=== PATIENT | female | born 1960 | race Caucasian/White ===

== ENCOUNTER → 2017-04-13 | Day surgery (SDC) | payer MEDICARE, OTHER ==
[~2017-04-13] MED LIST: BUPIVACAINE HCL PF 0.5% 10 ML VIAL ONE; GABA600T PO; HYDR-3583 PO; LACTATED RINGER'S 1000 ML INJ 1,000 ML ONE; LEVA750T PO; LIDOCAINE HCL 2% 50 ML VIAL ONE; LYRI100C PO; METF1000 PO; MIDAZOLAM HCL 2 MG/2 ML VIAL ONE; ONDANSETRON HCL 4 MG/2 ML VIAL IV PUSH ONE; PROPOFOL 200 MG/20 ML AMP IV ONE; PROT40TA PO; TRAZ100T4 PO; ceFAZolin 2 GM PREMIX 50 ML ONE
--- NOTE | 2017-04-15 14:42 | TN ---
cc: RUPAL MCCRAY DPM DATE OF SURGERY: 04/13/2017. PREOPERATIVE DIAGNOSIS: Osteomyelitis right third toe. POSTOPERATIVE DIAGNOSIS: Osteomyelitis right third toe. OPERATIVE PROCEDURE PERFORMED: Amputation right third toe. SURGEON: Rupal Mccray DPM. COOKING CHEF: Staff. PATHOLOGY: 1. Distal right third toe. 2. Bone biopsy right third toe proximal phalanx. 3. Culture right foot. ANESTHESIA: General endotracheal anesthesia plus 5 mL of 0.5% Marcaine plain plus 5 mL 2% lidocaine plain. ESTIMATED BLOOD LOSS: Minimal. COMPLICATIONS: None. TOURNIQUET TIME: 15 minutes right ankle at 250 mmHg. CONDITION: Stable to post-anesthesia care unit. DISPOSITION: Weightbearing as tolerated to heel only in surgical shoe right foot. FOLLOW UP: Follow up in clinic in one week for dressing change. INDICATIONS FOR THE PROCEDURE: The patient is a 56-year-old female who presented to my clinic with a chronic draining open wound to the tip of the right third toe. She had an MRI performed that showed findings consistent with osteomyelitis to the distal aspect of the right third toe. I discussed with her that her toe is very rigidly contracted and in order to remove all the infected bone and tissue would require to at least go back to the proximal interphalangeal joint which would leave a small portion of her toe sticking straight up in the air. I advised against leaving that due to her history of infection and problems that it would likely lead to further issues between the toes and she consented to amputation right third toe. DESCRIPTION OF THE PROCEDURE IN DETAIL: She was seen in preop holding by myself, nursing staff and anesthesia where the correct patient side and site were all confirmed be correct in the right foot. She was then taken back to the surgical suite, placed in supine position where attention was directed the right foot. It was prepped and draped in normal sterile fashion after timeouts were performed per facility protocol. Attention was directed to the right third toe where two semi elliptical incisions were made medially and laterally encompassing the right third digit where it was disarticulated at the metatarsophalangeal joint. The distal aspect of the right third toe was sent to pathology including the distal and middle phalanges and the proximal phalanx was sent as a bone biopsy to confirm that all infected bone was removed. A culture was also taken of the surgical wound prior to closure and sent to micro to determine if further antibiotics were required. Following this, the area was copiously irrigated followed by a local anesthetic consisting of 5 mL of 0.5% Marcaine plain with 5 mL of 2% lidocaine plain into the area followed by closure with 2-0 nylon suture primarily. A dressing consisting of Xeroform, 4x4s, ABD pads, Juventino and Geoffrey bandage were applied to the right lower extremity. She tolerated procedure and anesthesia well without complications and was taken back to post-anesthesia care unit with vital signs stable and vascular status intact to the remainder of the right foot. She will be weightbearing as tolerated to the heel only on the right foot in a surgical shoe will follow up in clinic in one week for dressing change. Rupal DAY/VALERIO /2:20 PM /2:39 PM
== END | disposition home or self-care (01) ==
LOC: ESDC 06:04
PROVIDERS: ATTEND Podiatrist Foot & Ankle Surgery
DX: M86.671 Other chronic osteomyelitis, right ankle and foot (principal)
CPT/HCPCS: 01480; 28820; 87070; 87205; 88305; 88311; J0690; J2250; J2405; J3010; J7120; 88307

== ENCOUNTER 2017-04-27 12:54 | Inpatient (IN) | payer MEDICARE, OTHER ==
[~2017-04-27] VITALS: Ht 165.1 cm; Wt 90.0 kg
[~2017-04-27 12:54] MED LIST changes: -BUPIVACAINE HCL PF 0.5% 10 ML VIAL ONE; -LACTATED RINGER'S 1000 ML INJ 1,000 ML ONE; -LIDOCAINE HCL 2% 50 ML VIAL ONE; -MIDAZOLAM HCL 2 MG/2 ML VIAL ONE; -ONDANSETRON HCL 4 MG/2 ML VIAL IV PUSH ONE; -PROPOFOL 200 MG/20 ML AMP IV ONE; -ceFAZolin 2 GM PREMIX 50 ML ONE
[2017-04-27 13:02] VITALS: BP 128/84; PULSE 98; RESP 20; TEMP 97.7; O2SAT 97
--- NOTE | 2017-04-27 13:58 | PD ---
Physical Exam Time Seen by Provider: 13:55 Narrative 56yo F sent by Dr. Lofton for admission for IV Antibiotics for R foot cellulitis s/p R #3 amputation 04/13/2017. Denies fever, vomiting. Patient seen in triage. VS reviewed. Patient awaiting bed placement. Data Data Last Documented VS Vital Signs Date Time Temp Pulse Resp B/P Pulse Ox O2 Delivery O2 Flow Rate FiO2 04/27/17 13:02 97.7 98 20 128/84 97 Room Air MDM Supervised Visit with JIMBO: Buffy Carson Apr 27, 2017 13:58
[2017-04-27] MEDS ORDERED: ACTO30TA10 PO (16:12)
[2017-04-27] MEDS ORDERED: GEMF600T PO (16:12)
[2017-04-27] MEDS ORDERED: DAPA1TAB3 PO (16:12)
--- NOTE | 2017-04-27 16:13 | PD ---
HPI Chief Complaint: Skin Problem Time Seen by Provider: 16:13 Travel History International Travel<30 days: No Contact w/Intl Traveler<30days: No Traveled to known affect area: No PFSH Past Medical History Arthritis: No Asthma: No Autoimmune Disease: No Blood Disorders: No Heart Rhythm Problems: No Cancer: No Cardiovascular Problems: No High Cholesterol: Yes Chemotherapy: No Chest Pain: No Congestive Heart Failure: No COPD: No Cerebrovascular Accident: No Diabetes: Yes (TYPE 2 ) Diminished Hearing: No Endocrine: Yes GERD: Yes Genitourinary: No Hiatal Hernia: No Immune Disorder: No Kidney Stones: No Musculoskeletal: Yes (DIABETIC NEUROPATHY) Neurologic: No Psychiatric: No Reproductive: No Respiratory: Yes Migraines: No Radiation Therapy: No Renal Failure: No Seizures: No Sickle Cell Disease: No Sleep Apnea: No Thyroid Disease: No Ulcer: No : 2 Para: 2 Miscarriage: 0 : 0 Past Surgical History Abdominal Surgery: No AICD: No Arteriovenous Shunt: No Cardiac Surgery: No Ear Surgery: No Endocrine Surgery: No Eye Surgery: No Genitourinary Surgery: No Gynecologic Surgery: No Insulin Pump: No Joint Replacement: No Neurologic Surgery: Yes Oral Surgery: Yes (Dentures) Pacemaker: No Thoracic Surgery: No Other Surgery: Yes (CALEB FEET) Social History Alcohol Use: No Tobacco Use: No Substance Use: No Allergies-Medications (Allergen,Severity, Reaction): Coded Allergies: Zosyn (Verified Allergy, Severe, Flushing, 04/27/17) BLURRED VISION, CHEST TIGHTNESS, SHORTNESS OF BREATH Vancomycin (Verified Adverse Reaction, Intermediate, ? 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 Farxiga (Dapagliflozin) 10 Mg Tab 10 Mg PO DAILY Actos (Pioglitazone HCl) 30 Mg Tab 30 Mg PO DAILY Metformin (Metformin HCl) 1,000 Mg Tab 1,000 Mg PO BIDPC With meals Protonix (Pantoprazole Sodium) 40 Mg Tab 40 Mg PO DAILY Gabapentin 600 Mg Tab 600 Mg PO HS Data Data Last Documented VS Vital Signs Date Time Temp Pulse Resp B/P Pulse Ox O2 Delivery O2 Flow Rate FiO2 04/27/17 13:02 97.7 98 20 128/84 97 Room Air Orders Iv Access Insert/Monitor (04/27/17 16:07) Complete Blood Count With Diff (04/27/17 16:07) Comprehensive Metabolic Panel (04/27/17 16:07) Westergren Sedimentation Rate (04/27/17 16:07) C-Reactive Protein (Crp) (04/27/17 16:07) Prothrombin Time / Inr (Pt) (04/27/17 16:07) Act Partial Throm Time (Ptt) (04/27/17 16:07) Blood Culture (04/27/17 16:07) Mri Foot W&W/O Contrast (04/27/17 ) Anuradha Branham Apr 27, 2017 16:13
--- NOTE | 2017-04-27 16:15 | PD ---
HPI Chief Complaint: Skin Problem Time Seen by Provider: 16:14 Travel History International Travel<30 days: No Contact w/Intl Traveler<30days: No Traveled to known affect area: No History of Present Illness HPI 56-year-old female presents to the emergency department sent by Dr. Godinez on, manufacture specialist, for IV antibiotics, MRI. The patient had right third digit toe amputation on April 13, 2017. She has been on Bactrim for approximately a week. Apparently, she is having worsening redness to the area and Dr. Faith is concerned of underlying abscess. The patient brings a prescription that says to admit to hospitalist for IV antibiotics, MRI with and without contrast, consult podiatry. Patient states she is allergic to Zosyn and vancomycin. PFSH Past Medical History Arthritis: No Asthma: No Autoimmune Disease: No Blood Disorders: No Heart Rhythm Problems: No Cancer: No Cardiovascular Problems: No High Cholesterol: Yes Chemotherapy: No Chest Pain: No Congestive Heart Failure: No COPD: No Cerebrovascular Accident: No Diabetes: Yes (TYPE 2 ) Diminished Hearing: No Endocrine: Yes GERD: Yes Genitourinary: No Hiatal Hernia: No Immune Disorder: No Kidney Stones: No Musculoskeletal: Yes (DIABETIC NEUROPATHY) Neurologic: No Psychiatric: No Reproductive: No Respiratory: Yes Migraines: No Radiation Therapy: No Renal Failure: No Seizures: No Sickle Cell Disease: No Sleep Apnea: No Thyroid Disease: No Ulcer: No : 2 Para: 2 Miscarriage: 0 : 0 Past Surgical History Abdominal Surgery: No AICD: No Arteriovenous Shunt: No Cardiac Surgery: No Ear Surgery: No Endocrine Surgery: No Eye Surgery: No Genitourinary Surgery: No Gynecologic Surgery: No Insulin Pump: No Joint Replacement: No Neurologic Surgery: Yes Oral Surgery: Yes (Dentures) Pacemaker: No Thoracic Surgery: No Other Surgery: Yes (CALEB FEET) Social History Alcohol Use: No Tobacco Use: No Substance Use: No Allergies-Medications (Allergen,Severity, Reaction): Coded Allergies: Zosyn (Verified Allergy, Severe, Flushing, 04/27/17) BLURRED VISION, CHEST TIGHTNESS, SHORTNESS OF BREATH Vancomycin (Verified Adverse Reaction, Intermediate, ? 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 Farxiga (Dapagliflozin) 10 Mg Tab 10 Mg PO DAILY Actos (Pioglitazone HCl) 30 Mg Tab 30 Mg PO DAILY Metformin (Metformin HCl) 1,000 Mg Tab 1,000 Mg PO BIDPC With meals Protonix (Pantoprazole Sodium) 40 Mg Tab 40 Mg PO DAILY Gabapentin 600 Mg Tab 600 Mg PO HS Review of Systems Except as stated in HPI: all other systems reviewed are Neg Physical Exam Narrative GENERAL: Well-nourished, well-developed female patient, ambulatory and afebrile. SKIN: Focused skin assessment warm/dry. HEAD: Normocephalic. Atraumatic. EYES: No scleral icterus. No injection or drainage. NECK: Supple, trachea midline. No JVD or lymphadenopathy. CARDIOVASCULAR: Regular rate and rhythm without murmurs, gallops, or rubs. RESPIRATORY: Breath sounds equal bilaterally. No accessory muscle use. GASTROINTESTINAL: Abdomen soft, non-tender, nondistended. MUSCULOSKELETAL: No cyanosis, or edema. Patient is s/p amputation to the right 3rd toe with erythema and swelling noted BACK: Nontender without obvious deformity. No CVA tenderness. Data Data Last Documented VS Vital Signs Date Time Temp Pulse Resp B/P Pulse Ox O2 Delivery O2 Flow Rate FiO2 04/27/17 13:02 97.7 98 20 128/84 97 Room Air Orders Iv Access Insert/Monitor (04/27/17 16:07) Complete Blood Count With Diff (04/27/17 16:07) Comprehensive Metabolic Panel (04/27/17 16:07) Westergren Sedimentation Rate (04/27/17 16:07) C-Reactive Protein (Crp) (04/27/17 16:07) Prothrombin Time / Inr (Pt) (04/27/17 16:07) Act Partial Throm Time (Ptt) (04/27/17 16:07) Blood Culture (04/27/17 16:07) Mri Foot W&W/O Contrast (04/27/17 ) Wbc Spect Ceretec (04/27/17 ) Consult Infectious Disease (04/27/17 ) Daptomycin Inj (Cubicin Inj) (04/27/17 16:45) Levofloxacin 750 Mg Premix Inj (Levaquin (04/27/17 16:45) Wound Culture And Gram Stain (04/27/17 16:47) (Hub Use Only)Inp Phy Cons/Ref (04/27/17 ) Consult Podiatry (04/27/17 ) Admit Order (Ed Use Only) (04/27/17 17:56) Labs Laboratory Tests Test 04/27/17 16:30 White Blood Count 15.6 TH/MM3 Red Blood Count 4.48 MIL/MM3 Hemoglobin 10.6 GM/DL Hematocrit 33.4 % Mean Corpuscular Volume 74.7 FL Mean Corpuscular Hemoglobin 23.6 PG Mean Corpuscular Hemoglobin 31.6 % Concent Red Cell Distribution Width 17.5 % Platelet Count 341 TH/MM3 Mean Platelet Volume 9.0 FL Neutrophils (%) (Auto) 71.8 % Lymphocytes (%) (Auto) 22.2 % Monocytes (%) (Auto) 3.7 % Eosinophils (%) (Auto) 1.6 % Basophils (%) (Auto) 0.7 % Neutrophils # (Auto) 11.2 TH/MM3 Lymphocytes # (Auto) 3.4 TH/MM3 Monocytes # (Auto) 0.6 TH/MM3 Eosinophils # (Auto) 0.3 TH/MM3 Basophils # (Auto) 0.1 TH/MM3 CBC Comment DIFF FINAL Differential Comment Erythrocyte Sedimentation Rate 49 mm/hr Prothrombin Time 10.9 SEC Prothromb Time International 1.0 RATIO Ratio Activated Partial 30.1 SEC Thromboplast Time Sodium Level 135 MEQ/L Potassium Level 4.1 MEQ/L Chloride Level 100 MEQ/L Carbon Dioxide Level 22.7 MEQ/L Anion Gap 12 MEQ/L Blood Urea Nitrogen 23 MG/DL Creatinine 0.84 MG/DL Estimat Glomerular Filtration 70 ML/MIN Rate Random Glucose 163 MG/DL Calcium Level 9.6 MG/DL Total Bilirubin 0.2 MG/DL Aspartate Amino Transf 9 U/L (AST/SGOT) Alanine Aminotransferase 15 U/L (ALT/SGPT) Alkaline Phosphatase 92 U/L C-Reactive Protein 1.50 MG/DL Total Protein 8.0 GM/DL Albumin 3.3 GM/DL MDM Medical Decision Making Medical Screen Exam Complete: Yes Emergency Medical Condition: Yes Medical Record Reviewed: Yes Differential Diagnosis osteomyelitis vs abscess vs.cellulitis Narrative Course 56-year-old female sent by Dr. Lofton for admission for IV antibiotics. CBC, CMP, sedimentation rate, CRP, PTT, PTT/INR, blood cultures 2, MRI with and without contrast are ordered and pending. Blood culture is ordered. Call is placed to Dr. Lofton to see what antibiotic she would like the patient to be on. CBC shows leukocytosis of 15.6. CMP shows no acute abnormalities. ESR is 49. CRP is 1.50. Coags are unremarkable. I talked to Dr. Dominguez, on-call for Dr. Godinez run at 1625. The patient was on Levaquin and daptomycin at her last visit. He would like her to restart of these medications due to allergy to Zosyn and vancomycin. He would like a speck CT for WBC for osteomyelitis to be completed. He would like infectious disease to be consulted as well. Test is ordered. I discussed this with the [employer] and states this will be done tomorrow morning. Patient started on Levaquin 750 mg and daptomycin 600 mg IV. Consult is placed for infectious disease and podiatry. [facility] is paged for admission. Dr. Frank accepted admission. Diagnosis Primary Impression: Cellulitis of foot, right Additional Impression: Diabetes Qualified Code: E11.8 - Type 2 diabetes mellitus with complication, unspecified intermediate insulin use status Admitting Information Admitting Physician Requests: Admit Anuradha Branham Apr 27, 2017 16:15
[2017-04-27] MEDS ORDERED: DAPTOmycin INJ 600 MG in SODIUM CHLORIDE 0.9% INJ 100 ML IV ONE (16:45)
[2017-04-27] MEDS ORDERED: LEVOFLOXACIN 750 MG PREMIX INJ 150 ML IV ONE (16:45)
[2017-04-27 17:14] LABS: AUTOMATED NEUTROPHIL # 11.2 TH/MM3 (1.8-7.7); BASOPHIL # 0.1 TH/MM3 (0-0.2); BASOPHIL % 0.7 % (0.0-2.0); EOSINOPHIL # 0.3 TH/MM3 (0-0.4); EOSINOPHIL % 1.6 % (0.0-4.0); HEMATOCRIT 33.4 % (35.0-46.0); HEMO FLAGS DIFF FINAL; LYMPH % 22.2 % (9.0-44.0); LYMPHOCYTE # 3.4 TH/MM3 (1.0-4.8); MEAN CELL VOLUME 74.7 FL (80.0-100.0); MEAN CORPUSCULAR HEMOGLOBIN 23.6 PG (27.0-34.0); MEAN CORPUSCULAR HGB CONC 31.6 % (32.0-36.0); MONO % 3.7 % (0.0-8.0); NEUT % 71.8 % (16.0-70.0); PLATELET COUNT 341 TH/MM3 (150-450); RED BLOOD COUNT 4.48 MIL/MM3 (4.00-5.30); RED CELL DISTRIBUTION WIDTH 17.5 % (11.6-17.2); WHITE BLOOD COUNT 15.6 TH/MM3 (4.0-11.0)
[2017-04-27 17:22] LABS: APTT (PATIENT) 30.1 SEC (24.3-30.1); PROTHROMBIN TIME - PATIENT 10.9 SEC (9.8-11.6)
[2017-04-27 17:41] LABS: ANION GAP 12 MEQ/L (5-15); AST (GOT) 9 U/L (15-37); BICARBONATE 22.7 MEQ/L (21.0-32.0); BLOOD UREA NITROGEN 23 MG/DL (7-18); CHLORIDE 100 MEQ/L (98-107); GLOMERULAR FILTRATION RATE 70 ML/MIN (>89); POTASSIUM 4.1 MEQ/L (3.5-5.1); SODIUM (NA) 135 MEQ/L (136-145)
[2017-04-27 17:42] LABS: ALT (GPT) 15 U/L (10-53)
[2017-04-27 17:45] LABS: ALKALINE PHOSPHATASE 92 U/L (45-117); TOTAL BILIRUBIN ADULT 0.2 MG/DL (0.2-1.0)
[2017-04-27] MEDS ORDERED: DEXTROSE 50% IN WATER 50 ML VIAL(D50) IV PRN (18:00)
[2017-04-27] MEDS ORDERED: ACETAMINOPHEN 325 MG TAB PO PRN (18:00)
[2017-04-27] MEDS ORDERED: GLUCAGON 1 MG/ML VIAL OTHER PRN ×2 (18:00→18:45)
[2017-04-27] MEDS ORDERED: DEXTROSE 50% IN WATER 50 ML VIAL(D50) IV PUSH PRN (18:45)
[2017-04-27 19:13] VITALS: BP 126/79; PULSE 89; RESP 16; TEMP 98.5; O2SAT 97
[2017-04-27] MEDS: INSULIN ASPART SUPPLEMENTAL SCALE SQ SCH (20:33)
[2017-04-27 21:00] VITALS: BP 131/72; TEMP 98.3
[2017-04-27] MEDS ORDERED: GADODIAMIDE PF 287 MG/ML 5 ML VIAL (for RAD MRI) IV ONE (21:24)
[2017-04-27] MEDS ORDERED: GABAPENTIN 100 MG CAP PO ONE (23:00)
[2017-04-27] MEDS: ACETAMINOPHEN/HYDROcodone 325 MG/10 MG TAB PO PRN (23:36)
[2017-04-28] VITALS (9 sets, daily range): BP systolic 106–135; BP diastolic 56–80; PULSE 77–103; RESP 18–20; TEMP 96.7–98.5; O2SAT 95–98
--- NOTE | 2017-04-28 00:11 | RADRPT ---
EXAM DATE/TIME: 04/27/2017 23:15 [facility] COMPARISON: FOOT RIGHT COMPLETE ([id number]), July 23, 2016, 20:15. INDICATIONS : Right foot pain, swelling post amputation surgery two weeks ago MEDICAL HISTORY : Diabetes mellitus type II. SURGICAL HISTORY : Right 1st-5th digit amputation ENCOUNTER: Initial ACUITY: 2 weeks PAIN SCORE: 5/10 LOCATION: Right distal foot FINDINGS: AP, lateral and oblique views of right foot were obtained and demonstrate interval amputation of the third distal, middle and proximal phalanges since the prior study. There is a chronic dislocation at the level of the second metatarsal phalangeal joint with chronic deformity of the distal metatarsal. Extensive degenerative changes are again noted involving the metatarsal tarsal and intertarsal joints . The patient is status post more remote amputation of the first digit down to the level of the proxi mal metatarsal. There is no destructive change or periosteal new bone formation. Diffuse soft tissue prominence is again noted over the distal and mid foot. CONCLUSION: 1. Status post interval amputation of the third distal, middle and proximal phalanges. 2. Status post more remote amputation of the first digit. 3. Chronic dislocation of the level of the second metatarsal phalangeal joint. 4. Extensive degenerative changes in the mid and hindfoot. 5. No definite destructive change or periosteal new bone formation. Memo Hoover MD on April 28, 2017 at 0:06 Board Certified Radiologist. This report was verified electronically.
--- NOTE | 2017-04-28 00:18 | RADRPT ---
EXAM DATE/TIME: 04/27/2017 21:00 [facility] COMPARISON: FOOT RIGHT COMPLETE ([id number]), April 27, 2017, 23:15. MRI FOOT RIGHT W & W/O CONTRAST, September 08, 2014, 15:33. INDICATIONS : Osteomyelitis. Right foot pain on 3rd toe. CONTRAST: 18 cc Omniscan (gadodiamide) IV MEDICAL HISTORY : Diabetes mellitus type 2. SURGICAL HISTORY : Left ankle sx, Right foot sx. ENCOUNTER: Initial ACUITY: 1 day PAIN SCORE: 7/10 LOCATION: Right fore foot. TECHNIQUE: Multiplanar, multisequence MRI examination was performed without contrast and after the intravenous a dministration of gadolinium. FINDINGS: The patient is status post remote amputation of the first digit down to the level of the metatar eric base. The patient is also status post more recent amputation of the third proximal, middle and di stal phalanges. There is a chronic dislocation again noted at the level of the second metatarsal phal angeal joint. There is deformity of the metatarsal head. There is normal marrow signal in the residua l metatarsals and phalanges with no definite marrow edema. Extensive degenerative changes are noted i n the metatarsal tarsal joints and intertarsal joints with joint space loss, sclerosis and hypertroph ic change. Extensive soft tissue swelling is noted over the distal foot greatest at the site of recen t amputation distal to the third metatarsal. CONCLUSION: 1. Recent interval amputation of the third digit down to level of the metatarsal head with apparent p ost surgical changes and soft tissue swelling. 2. More remote amputation of the first digit down to the level of the first metatarsal base. 3. Chronic dislocation at the level of the second metatarsal phalangeal joint. 4. No definite evidence of osteomyelitis. 5. Extensive degenerative change in the metatarsal tarsal joints and intertarsal joints. Memo Hoover MD on April 28, 2017 at 0:10 Board Certified Radiologist. This report was verified electronically.
[2017-04-28] MEDS: INSULIN ASPART SUPPLEMENTAL SCALE SQ SCH ×4 (06:25→20:49)
[2017-04-28] MEDS: ACETAMINOPHEN/HYDROcodone 325 MG/10 MG TAB PO PRN ×3 (08:34→20:40)
--- NOTE | 2017-04-28 14:53 | PD.ID.CON ---
History of Present Illness Service ID Consult Requested By Dr. Avila Reason for Consult Evaluation and Mment of Possible Osteomyelitis, Diabetic foot infection. Primary Care Physician Non-Staff Diagnoses: History of Present Illness is a 56-year-old female with past medical history significant for diabetes with diabetic neuropathy, obesity, prior history of diabetic foot infections. Patient has been seen by ID services Dr. Stevenson in the past and she has been treated with IV daptomycin using a PICC line as outpatient. Patient reports she has an outpatient surgery which involved right third digit toe amputation on April 13, 2017. She has been on Bactrim for approximately a week. Due to worsening redness to the area Dr. Godinez on was concerned about underlying abscess. A MRI foot was done which showed chronic degenerative changes. In order to rule out osteomyelitis patient is undergoing WBC scan today. Infectious disease is consulted for evaluation and management of possible osteomyelitis and diabetic foot infection. Patient denies any fever, chills or night sweats. Patient follows up with Dr. Darby Richardson as outpatient. Review of Systems Constitutional: DENIES: Diaphoretic episodes, Fatigue, Fever, Weight gain, Weight loss, Chills, Dizziness, Change in appetite, Night Sweats Endocrine: DENIES: Abnorml menstrual pattern, Heat/cold intolerance, Polydipsia , Polyuria, Polyphagia Eyes: DENIES: Blurred vision, Diplopia, Eye inflammation, Eye pain, Vision loss , Photosensitivity, Double Vision Ears, nose, mouth, throat: DENIES: Tinnitus, Hearing loss, Vertigo, Nasal discharge, Oral lesions, Throat pain, Hoarseness, Ear Pain, Running Nose, Epistaxis, Sinus Pain, Toothache, Odynophagia Respiratory: DENIES: Apneas, Cough, Snoring, Wheezing, Hemoptysis, Sputum production, Shortness of breath Cardiovascular: DENIES: Chest pain, Palpitations, Syncope, Dyspnea on Exertion , PND, Lower Extremity Edema, Orthopnea, Claudication Gastrointestinal: DENIES: Abdominal pain, Black stools, Bloody stools, Constipation, Diarrhea, Nausea, Vomiting, Difficulty Swallowing, Anorexia Genitourinary: DENIES: Abnormal vaginal bleeding, Dysmenorrhea, Dyspareunia, Sexual dysfunction, Urinary frequency, Urinary incontinence, Urgency, Hematuria , Dysuria, Nocturia, Vaginal discharge Musculoskeletal: DENIES: Joint pain, Muscle aches, Stiffness, Joint Swelling, Back pain, Neck pain Integumentary: DENIES: Abnormal pigmentation, Pruritus, Rash, Nail changes, Breast masses, Breast skin changes, Nipple discharge Hematologic/lymphatic: DENIES: Bruising, Lymphadenopathy Immunologic/allergic: DENIES: Eczema, Urticaria Neurologic: COMPLAINS OF: Paresthesias, DENIES: Abnormal gait, Headache, Localized weakness, Seizures, Speech Problems, Tremor, Poor Balance Psychiatric: DENIES: Anxiety, Confusion, Mood changes, Depression, Hallucinations, Agitation, Suicidal Ideation, Homicidal Ideation, Delusions Past Family Social History Allergies: Coded Allergies: Zosyn (Verified Allergy, Severe, Flushing, 04/27/17) BLURRED VISION, CHEST TIGHTNESS, SHORTNESS OF BREATH Vancomycin (Verified Adverse Reaction, Intermediate, ? REDMANS SYNDROME, ) *MDRO Multi-Drug Resistant Organism (Verified Adverse Reaction, Unknown, ) MRSA (foot) - 02/2016 & 07/21/16 Past Medical History Diabetes with diabetic neuropathy Hypercholesterolemia Morbid obesity BMI 33 Past Surgical History Bilateral feet surgery recent amputation of toe foot Reported Medications Reported Meds & Active Scripts Active Hydrocodone-Acetaminophen 10-325 mg Tab 1 Tab PO Q6H PRN Reported Gemfibrozil 600 Mg Tab 600 Mg PO BIDAC Take 30 minutes prior to breakfast and dinner. Farxiga (Dapagliflozin) 10 Mg Tab 10 Mg PO DAILY Actos (Pioglitazone HCl) 30 Mg Tab 30 Mg PO DAILY Metformin (Metformin HCl) 1,000 Mg Tab 1,000 Mg PO BIDPC With meals Protonix (Pantoprazole Sodium) 40 Mg Tab 40 Mg PO DAILY Gabapentin 600 Mg Tab 600 Mg PO HS Active Ordered Medications Current Medications Medications (Trade) Dose Ordered Sig/Danny Route Start Time Stop Time Status Last Admin (Tylenol) 650 mg Q4H PRN PO 04/27/17 18:00 (D50w (Vial) Inj) 50 ml UNSCH PRN IV 04/27/17 18:00 Glucagon 1 mg 1 mg UNSCH PRN OTHER 04/27/17 18:00 Levofloxacin/ Dextrose 150 ml @ 100 mls/hr Q24H IV 04/28/17 18:00 04/28/17 20:40 (Cubicin Inj/NS Inj) 100 ml @ 200 mls/hr Q24H IV 04/28/17 17:00 04/28/17 17:35 (Neurontin) 600 mg HS PO 04/28/17 21:00 04/28/17 20:40 ([place] 10-325 Mg) 1 tab Q6H PRN PO 04/27/17 23:00 04/28/17 20:40 Family History Reviewed and noncontributory to current ID problems. Social History Denies any alcohol smoking or IV drug abuse. Physical Exam Vital Signs Vital Signs Date Time Temp Pulse Resp B/P Pulse Ox O2 Delivery O2 Flow Rate FiO2 04/28/17 12:15 97.5 83 18 110/67 97 04/28/17 08:15 97.5 99 20 106/65 96 04/28/17 08:00 103 04/28/17 05:21 98.4 77 18 128/60 97 04/28/17 04:00 81 04/28/17 01:16 18 04/28/17 00:48 98.5 79 18 135/60 95 04/28/17 00:00 84 04/27/17 21:00 98.3 82 16 131/72 99 04/27/17 19:13 98.5 89 16 126/79 97 Room Air Physical Exam GENERAL: This is a well-nourished, well-developed patient, in no apparent distress. SKIN: No rashes, ecchymoses or lesions. Cool and dry. HEAD: Atraumatic. Normocephalic. No temporal or scalp tenderness. EYES: Pupils equal round and reactive. Extraocular motions intact. No scleral icterus. No injection or drainage. ENT: Nose without bleeding, purulent drainage or septal hematoma. Throat without erythema, tonsillar hypertrophy or exudate. Uvula midline. Airway patent. NECK: Trachea midline. Supple, nontender, no meningeal signs. CARDIOVASCULAR: Regular rate and rhythm without murmurs, gallops, or rubs. RESPIRATORY: Clear to auscultation. Breath sounds equal bilaterally. No wheezes , rales, or rhonchi. GASTROINTESTINAL: Abdomen soft, non-tender, nondistended. Obesity. MUSCULOSKELETAL: Foot in a dressing. Patient was on the rate for WBC scan. NEUROLOGICAL: Awake and alert. Grossly nonfocal Psych cooperative IV line site with no evidence of infection. Laboratory Laboratory Tests Test 04/27/17 16:30 White Blood Count 15.6 Red Blood Count 4.48 Hemoglobin 10.6 Hematocrit 33.4 Mean Corpuscular Volume 74.7 Mean Corpuscular Hemoglobin 23.6 Mean Corpuscular Hemoglobin 31.6 Concent Red Cell Distribution Width 17.5 Platelet Count 341 Mean Platelet Volume 9.0 Neutrophils (%) (Auto) 71.8 Lymphocytes (%) (Auto) 22.2 Monocytes (%) (Auto) 3.7 Eosinophils (%) (Auto) 1.6 Basophils (%) (Auto) 0.7 Neutrophils # (Auto) 11.2 Lymphocytes # (Auto) 3.4 Monocytes # (Auto) 0.6 Eosinophils # (Auto) 0.3 Basophils # (Auto) 0.1 CBC Comment DIFF FINAL Differential Comment Erythrocyte Sedimentation Rate 49 Prothrombin Time 10.9 Prothromb Time International 1.0 Ratio Activated Partial 30.1 Thromboplast Time Sodium Level 135 Potassium Level 4.1 Chloride Level 100 Carbon Dioxide Level 22.7 Anion Gap 12 Blood Urea Nitrogen 23 Creatinine 0.84 Estimat Glomerular Filtration 70 Rate Random Glucose 163 Calcium Level 9.6 Total Bilirubin 0.2 Aspartate Amino Transf 9 (AST/SGOT) Alanine Aminotransferase 15 (ALT/SGPT) Alkaline Phosphatase 92 C-Reactive Protein 1.50 Total Protein 8.0 Albumin 3.3 Date/Time Procedure Status Source Growth 04/27/17 17:00 Gram Stain - Final Resulted Wound Foot 04/27/17 17:00 Wound Culture Resulted Wound Foot Pending 04/27/17 16:30 Aerobic Blood Culture - Preliminary Resulted Blood Peripheral NO GROWTH IN 1 DAY 04/27/17 16:30 Anaerobic Blood Culture - Preliminary Resulted Blood Peripheral NO GROWTH IN 1 DAY Result Diagram: 04/27/17 1630 04/27/17 1630 Imaging Last Impressions Foot X-Ray 04/27/17 0000 Signed Impressions: Service Date/Time: Thursday, April 27, 2017 23:15 - CONCLUSION: 1. Status post interval amputation of the third distal, middle and proximal phalanges. 2. Status post more remote amputation of the first digit. 3. Chronic dislocation of the level of the second metatarsal phalangeal joint. 4. Extensive degenerative changes in the mid and hindfoot. 5. No definite destructive change or periosteal new bone formation. Memo Hoover MD Foot MRI 04/27/17 0000 Signed Impressions: Service Date/Time: Thursday, April 27, 2017 21:00 - CONCLUSION: 1. Recent interval amputation of the third digit down to level of the metatarsal head with apparent post surgical changes and soft tissue swelling. 2. More remote amputation of the first digit down to the level of the first metatarsal base. 3. Chronic dislocation at the level of the second metatarsal phalangeal joint. 4. No definite evidence of osteomyelitis. 5. Extensive degenerative change in the metatarsal tarsal joints and intertarsal joints. Memo Hoover MD Assessment and Plan Assessment and Plan Diabetic foot infection Possible Osteomyelitis Diabetic neuropathy Recs: Follow WBC scan. Continue Daptomycin IV(ASP: Vanco allergy) Continue Levaquin Noted Podiatry recs of oral antibiotics possibly if WBC scan negative. Follow cultures Follow clinically. Other ID MDs to cover for me starting 04/29/2017 to 05/05/2017. I will be back 05/06. Nancy Alcaraz MD Apr 28, 2017 14:53
[2017-04-28] MEDS: DAPTOmycin INJ 600 MG in SODIUM CHLORIDE 0.9% INJ 100 ML IV SCH (17:35)
--- NOTE | 2017-04-28 20:30 | MB ---
cc: XOCHILT KEMP DPM DATE OF CONSULTATION: 04/28/2017. REASON FOR CONSULTATION: Right foot cellulitis. HISTORY OF PRESENT ILLNESS: The patient is status post right third digit amputation by Dr. Lofton on 04/13/2017. The patient was seen in the office at [facility] and sent to admission for IV antibiotics. REVIEW OF SYSTEMS: A six-point review of systems is unremarkable. PAST MEDICAL HISTORY: 1. Hypercholesterolemia. 2. Diabetes type 2. 3. Gastroesophageal reflux disease (GERD). 4. Neuropathy. PAST SURGICAL HISTORY: 1. Oral surgery. 2. Bilateral foot surgery. 3. Right third digit amputation. SOCIAL HISTORY: Denies alcohol, tobacco or substance abuse. ALLERGIES: 1. ZOSYN. 2. VANCOMYCIN. REPORTED MEDICATIONS: 1. Gemfibrozil. 2. Farxiga. 3. Actos. 4. Metformin. 5. Protonix. 6. Gabapentin. PHYSICAL EXAMINATION: Right foot DP and PT palpable status post right third digit amputation with mild erythema, minimal edema, contractures rigid of the fourth and fifth digits. LABS: WBCs on 04/28/2017 of 15.6 , hemoglobin and hematocrit 10.6 and 33.4. Erythrocyte sedimentation rate 49. IMAGING STUDIES: Right foot x-rays non-weightbearing: Third digit amputation. No gas noted on x-rays. Right foot MRI completed 04/27/2017 indicates no abnormal increased signal intensity of the metatarsals of the second and third digits. There is no abscess noted. ASSESSMENT AND PLAN: 1. Status post right third digit amputation 04/13/2017 Dr. Lofton. 2. Diabetic neuropathy. 3. Right foot cellulitis. The patient's MRI indicates no indication for osteomyelitis; however, she is pending [facility] WBC scan. Should the WBC scan be negative for osteomyelitis, my plan is to have this patient discharged on oral antibiotics per infectious disease. She will follow up with Dr. Lofton within a week of discharge. We will continue to follow the patient while in-house. Xochilt Kemp DPM /VALERIO /7:53 PM /8:20 PM [facility]OSPITALShantal
[2017-04-28] MEDS: LEVOFLOXACIN 750 MG PREMIX INJ 150 ML IV SCH (20:40)
[2017-04-28] MEDS: GABAPENTIN 300 MG CAP PO SCH (20:40)
--- NOTE | 2017-04-28 21:44 | HHI.HP ---
HPI Service [facility] Primary Care Physician Non-Staff Admission Diagnosis right foot celluitis, r/o osteomyelitis, s/p amputation of 3rd toe Diagnoses: Travel History International Travel<30 Days: No Contact w/Intl Traveler <30 Da: No Traveled to Known Affected Are: No History of Present Illness 56-year-old female with a history of diabetes, hyperlipidemia, diabetic neuropathy, who recently underwent right third toe amputation on 04/13/17. She presents having been sent and by Dr. Lofton due to suspected osteoarthritis. Patient says she feels fine. Denies any pain. Denies any chest pain, shortness of breath, nausea, vomiting, fevers, chills, diarrhea, constipation. She does have chronic insensitivity to heat which has not changed. Review of Systems performed and negative except for HPI and past medical history. Past Family Social History Past Medical History Hyperlipidemia Diabetes GERD Diabetic peripheral neuropathy Past Surgical History Bilateral foot surgeries. Right foot third digit amputation Reported Medications Reported Meds & Active Scripts Active Hydrocodone-Acetaminophen 10-325 mg Tab 1 Tab PO Q6H PRN Reported Gemfibrozil 600 Mg Tab 600 Mg PO BIDAC Take 30 minutes prior to breakfast and dinner. Farxiga (Dapagliflozin) 10 Mg Tab 10 Mg PO DAILY Actos (Pioglitazone HCl) 30 Mg Tab 30 Mg PO DAILY Metformin (Metformin HCl) 1,000 Mg Tab 1,000 Mg PO BIDPC With meals Protonix (Pantoprazole Sodium) 40 Mg Tab 40 Mg PO DAILY Gabapentin 600 Mg Tab 600 Mg PO HS Allergies: Coded Allergies: Zosyn (Verified Allergy, Severe, Flushing, 04/27/17) BLURRED VISION, CHEST TIGHTNESS, SHORTNESS OF BREATH Vancomycin (Verified Adverse Reaction, Intermediate, ? REDMANS SYNDROME, ) *MDRO Multi-Drug Resistant Organism (Verified Adverse Reaction, Unknown, ) MRSA (foot) - 02/2016 & 07/21/16 Family History Mother from aortic aneurysm at old age. Father with myasthenia gravis. Social History Nonsmoker. Social drinker. Denies illicit drugs. Physical Exam Vital Signs Vital Signs Date Time Temp Pulse Resp B/P Pulse Ox O2 Delivery O2 Flow Rate FiO2 04/28/17 20:52 96.7 98 20 116/80 97 04/28/17 16:27 97.5 90 18 111/56 98 04/28/17 12:15 97.5 83 18 110/67 97 04/28/17 08:15 97.5 99 20 106/65 96 04/28/17 08:00 103 04/28/17 05:21 98.4 77 18 128/60 97 04/28/17 04:00 81 04/28/17 01:16 18 04/28/17 00:48 98.5 79 18 135/60 95 04/28/17 00:00 84 Physical Exam GENERAL: This is a well-nourished, well-developed patient, in no apparent distress. SKIN: No rashes, ecchymoses or lesions. Cool and dry. HEAD: Atraumatic. Normocephalic. No temporal or scalp tenderness. EYES: Pupils equal round and reactive. Extraocular motions intact. No scleral icterus. No injection or drainage. ENT: Nose without bleeding, purulent drainage or septal hematoma. Throat without erythema, tonsillar hypertrophy or exudate. Uvula midline. Airway patent. NECK: Trachea midline. No JVD or lymphadenopathy. Supple, nontender, no meningeal signs. CARDIOVASCULAR: Regular rate and rhythm without murmurs, gallops, or rubs. RESPIRATORY: Clear to auscultation. Breath sounds equal bilaterally. No wheezes , rales, or rhonchi. GASTROINTESTINAL: Abdomen soft, non-tender, nondistended. No hepato-splenomegaly , or palpable masses. No guarding. MUSCULOSKELETAL: Extremities without clubbing, cyanosis, or edema. No joint tenderness, effusion, or edema noted. No calf tenderness. Negative Homans sign bilaterally.right foot with dressing intact. No erythema extending beyond dressing. NEUROLOGICAL: Awake and alert. Cranial nerves II through XII intact. Motor and sensory grossly within normal limits. Five out of 5 muscle strength in all muscle groups. Normal speech. Laboratory Date/Time Procedure Status Source Growth 04/27/17 17:00 Gram Stain - Final Resulted Wound Foot 04/27/17 17:00 Wound Culture - Preliminary Resulted S. Aureus Mrsa 04/27/17 16:30 Aerobic Blood Culture - Preliminary Resulted Blood Peripheral NO GROWTH IN 1 DAY 8/2/17 16:30 Anaerobic Blood Culture - Preliminary Resulted Blood Peripheral NO GROWTH IN 1 DAY Result Diagram: 04/27/17 1630 04/27/17 1630 Imaging Last Impressions Foot X-Ray 04/27/17 0000 Signed Impressions: Service Date/Time: Thursday, April 27, 2017 23:15 - CONCLUSION: 1. Status post interval amputation of the third distal, middle and proximal phalanges. 2. Status post more remote amputation of the first digit. 3. Chronic dislocation of the level of the second metatarsal phalangeal joint. 4. Extensive degenerative changes in the mid and hindfoot. 5. No definite destructive change or periosteal new bone formation. Memo Hoover MD Foot MRI 04/27/17 0000 Signed Impressions: Service Date/Time: Thursday, April 27, 2017 21:00 - CONCLUSION: 1. Recent interval amputation of the third digit down to level of the metatarsal head with apparent post surgical changes and soft tissue swelling. 2. More remote amputation of the first digit down to the level of the first metatarsal base. 3. Chronic dislocation at the level of the second metatarsal phalangeal joint. 4. No definite evidence of osteomyelitis. 5. Extensive degenerative change in the metatarsal tarsal joints and intertarsal joints. Memo Hoover MD Assessment and Plan Assessment and Plan //Sepsis //Diabetic foot wound. -Tachycardia, leukocytosis of 15 on admission. Right foot wound. -Continue Levaquin and daptomycin. Infectious disease following. -Follow up white blood cell scan. Plan pending results. -Podiatry following. Appreciate assistance. //Diabetes mellitus. Hold metformin. Hold oral diabetic meds. Diabetic diet. Insulin sliding scale. Monitor blood sugars. //Hyperlipidemia. Chronic. Continue gemfibrozil. In seen today around noon. She reports the pain is under control. Denies any chest pain or shortness of breath. //Chronic diabetic neuropathy. Continue home gabapentin. //GERD. Chronic. Continue home PPI. //Prophylaxis. SCDs. Anticoagulation as per surgical service Discussed Condition With patient, nurse,family member at bedside Physician Certification 2 Midnight Certification Type: Admission for Inpatient Services Order for Inpatient Services The services are ordered in accordance with Medicare regulations or non- Medicare payer requirements, as applicable. In the case of services not specified as inpatient-only, they are appropriately provided as inpatient services in accordance with the 2-midnight benchmark. Estimated LOS (days): 2 days is the estimated time the patient will need to remain in the hospital, assuming treatment plan goals are met and no additional complications. Post-Hospital Plan: Home Harris Avila MD Apr 28, 2017 21:44
[2017-04-29] VITALS: BP 98/55; PULSE 88; RESP 18; TEMP 96.7; O2SAT 97
[2017-04-29 04:00] VITALS: BP 129/68; PULSE 83; RESP 18; TEMP 95.6; O2SAT 96
[2017-04-29] MEDS: ACETAMINOPHEN/HYDROcodone 325 MG/10 MG TAB PO PRN ×4 (04:39→23:53)
[2017-04-29] MEDS: INSULIN ASPART SUPPLEMENTAL SCALE SQ SCH ×4 (04:45→22:33)
[2017-04-29] MEDS: GEMFIBROZIL 600 MG TAB PO SCH ×2 (06:25→16:56)
[2017-04-29 08:00] VITALS: BP 121/64; PULSE 81; RESP 17; TEMP 96.3; O2SAT 98
[2017-04-29] MEDS: PANTOPRAZOLE SOD 40 MG DELAYED RELEASE TAB PO SCH (08:49)
--- NOTE | 2017-04-29 10:49 | RADRPT ---
EXAM DATE/TIME: 04/28/2017 12:32 [facility] COMPARISON: WBC SPECT CERETEC, July 22, 2016, 12:55. INDICATIONS : Right foot infection. Right third toe amputation April 13, 2017. DOSE: 20.2 mCi Tc99m Ceretec labeled white blood cells IV SPECT IMAGIN hrs, 20 hrs IMAGNG: SPECT/CT imaging with fusion was performed. RADIATION DOSE: 5.21 CTDIvol (mGy) ; Multiple Day Study MEDICAL HISTORY : Diabetes mellitus type 2. Hypercholesterolemia. SURGICAL HISTORY : Plates in ankle. ENCOUNTER: Initial ACUITY: 1 week PAIN SCALE: 2/10 LOCATION: Right Foot. TECHNIQUE: Following the in vitro labeling of autologous white cells and reinjection, whole body scan was perfor med at the specified times. SPECT imaging was performed at the specified time in sagittal, axial and coronal planes. Attenuation correction was performed with the computed tomography and both the atten uation correction and non-attenuation corrected data sets were reviewed. FINDINGS: There is focal uptake involving the soft tissues of the expected location of the second phalanx. Thi s appears to be soft tissues and not the bone. These inflammatory changes do extend to the bone. No other abnormalities appreciated. CONCLUSION: Intense uptake thought represent inflammatory changes in the soft tissue. This only involves this on e focal area, second and third phalanges. No other uptake is identified. Candido Schmid MD FACR on April 29, 2017 at 10:45 Board Certified Radiologist. This report was verified electronically.
[2017-04-29 12:00] VITALS: BP 107/64; PULSE 96; RESP 17; TEMP 96.5; O2SAT 96
[2017-04-29 16:00] VITALS: BP 122/59; PULSE 100; RESP 17; TEMP 95.5; O2SAT 98
[2017-04-29] MEDS: LEVOFLOXACIN 750 MG PREMIX INJ 150 ML IV SCH (16:56)
[2017-04-29] MEDS: DAPTOmycin INJ 600 MG in SODIUM CHLORIDE 0.9% INJ 100 ML IV SCH (16:56)
--- NOTE | 2017-04-29 18:14 | HHI.PR ---
Subjective Remarks Patient seen this afternoon after white blood cell scan. She again reports no pain. Denies any chest pain or shortness of breath. Objective Vital Signs Date Time Temp Pulse Resp B/P Pulse Ox O2 Delivery O2 Flow Rate FiO2 04/29/17 16:00 95.5 100 17 122/59 98 04/29/17 12:00 96.5 96 17 107/64 96 04/29/17 08:00 96.3 81 17 121/64 98 04/29/17 04:00 95.6 83 18 129/68 96 04/29/17 00:00 96.7 88 18 98/55 97 04/28/17 20:52 96.7 98 20 116/80 97 I/O 04/28/17 04/28/17 04/28/17 04/29/17 04/29/17 04/29/17 07:00 15:00 23:00 07:00 15:00 23:00 Intake Total 360 ml 460 ml Balance 360 ml 460 ml Intake Oral 360 ml 460 ml # Voids 2 5 # Bowel Movements 1 Result Diagram: 04/27/17 1630 04/27/17 1630 Imaging Last Impressions Tumor Localization 04/28/17 0000 Signed Impressions: Service Date/Time: April 12:32 - CONCLUSION: Intense uptake thought represent inflammatory changes in the soft tissue. This only involves this one focal area, second and third phalanges. No other uptake is identified. Candido Schmid MD FACR Foot X-Ray 04/27/17 0000 Signed Impressions: Service Date/Time: Thursday, April 27, 2017 23:15 - CONCLUSION: 1. Status post interval amputation of the third distal, middle and proximal phalanges. 2. Status post more remote amputation of the first digit. 3. Chronic dislocation of the level of the second metatarsal phalangeal joint. 4. Extensive degenerative changes in the mid and hindfoot. 5. No definite destructive change or periosteal new bone formation. Memo Hoover MD Foot MRI 04/27/17 0000 Signed Impressions: Service Date/Time: Thursday, April 27, 2017 21:00 - CONCLUSION: 1. Recent interval amputation of the third digit down to level of the metatarsal head with apparent post surgical changes and soft tissue swelling. 2. More remote amputation of the first digit down to the level of the first metatarsal base. 3. Chronic dislocation at the level of the second metatarsal phalangeal joint. 4. No definite evidence of osteomyelitis. 5. Extensive degenerative change in the metatarsal tarsal joints and intertarsal joints. Memo Hoover MD Objective Remarks GENERAL: patient lying in bed. Appears comfortable. Alert and oriented 3. SKIN: Warm and dry. HEAD: Normocephalic. EYES: No scleral icterus. No injection or drainage. NECK: Supple, trachea midline. No JVD or lymphadenopathy. CARDIOVASCULAR: Regular rate and rhythm without murmurs, gallops, or rubs. RESPIRATORY: Breath sounds equal bilaterally. No accessory muscle use. GASTROINTESTINAL: Abdomen soft, non-tender, nondistended. MUSCULOSKELETAL: No cyanosis, or edema. BACK: Nontender without obvious deformity. No CVA tenderness. A/P Assessment and Plan =====04/29/17===== Follow up results of testing. Repeat labs ordered and pending Plan as per podiatry and infectious disease. Continue antibiotics //Sepsis. //Diabetic foot wound. -Tachycardia, leukocytosis of 15 on admission. Right foot wound. -Continue Levaquin and daptomycin. Infectious disease following. -Follow up white blood cell scan. Plan pending results. -04/29 Repeat labs pending. Plan as per podiatry. Appreciate assistance. //Diabetes mellitus. Hold metformin. Hold oral diabetic meds. Diabetic diet. Insulin sliding scale. Monitor blood sugars. = Blood sugars in the 110s. Under control. Continue to monitor //Hyperlipidemia. Chronic. Continue gemfibrozil. In seen today around noon. She reports the pain is under control. Denies any chest pain or shortness of breath. //Chronic diabetic neuropathy. Continue home gabapentin. //GERD. Chronic. Continue home PPI. //Prophylaxis. SCDs. Anticoagulation as per surgical service Discharge Planning when cleared by infectious disease and podiatry. Harris Avila MD Apr 29, 2017 18:14
[2017-04-29 20:00] VITALS: BP 113/55; PULSE 110; RESP 16; TEMP 97.8; O2SAT 96
[2017-04-29] MEDS: GABAPENTIN 300 MG CAP PO SCH (22:31)
[2017-04-30] VITALS: BP 99/53; PULSE 91; RESP 16; TEMP 97; O2SAT 97
[2017-04-30 05:15] LABS: AUTOMATED NEUTROPHIL # 7.7 TH/MM3 (1.8-7.7); BASOPHIL # 0.1 TH/MM3 (0-0.2); BASOPHIL % 0.6 % (0.0-2.0); EOSINOPHIL # 0.3 TH/MM3 (0-0.4); EOSINOPHIL % 2.8 % (0.0-4.0); HEMO FLAGS DIFF FINAL; LYMPH % 26.3 % (9.0-44.0); LYMPHOCYTE # 3.1 TH/MM3 (1.0-4.8); MEAN CELL VOLUME 74.3 FL (80.0-100.0); MEAN CORPUSCULAR HEMOGLOBIN 23.6 PG (27.0-34.0); MEAN CORPUSCULAR HGB CONC 31.8 % (32.0-36.0); MONO % 5.2 % (0.0-8.0); NEUT % 65.1 % (16.0-70.0); PLATELET COUNT 283 TH/MM3 (150-450); RED BLOOD COUNT 4.58 MIL/MM3 (4.00-5.30); RED CELL DISTRIBUTION WIDTH 17.5 % (11.6-17.2); WHITE BLOOD COUNT 11.9 TH/MM3 (4.0-11.0)
[2017-04-30 05:36] LABS: BICARBONATE 26.1 MEQ/L (21.0-32.0); POTASSIUM 3.8 MEQ/L (3.5-5.1)
[2017-04-30] MEDS: GEMFIBROZIL 600 MG TAB PO SCH ×2 (06:05→16:00)
[2017-04-30] MEDS: INSULIN ASPART SUPPLEMENTAL SCALE SQ SCH ×3 (06:08→16:00)
[2017-04-30] MEDS: ACETAMINOPHEN/HYDROcodone 325 MG/10 MG TAB PO PRN ×2 (06:09→13:27)
[2017-04-30 08:00] VITALS: BP 108/55; PULSE 94; RESP 17; TEMP 96.8; O2SAT 96
[2017-04-30] MEDS: PANTOPRAZOLE SOD 40 MG DELAYED RELEASE TAB PO SCH (09:26)
[2017-04-30 12:00] VITALS: BP 95/55; PULSE 89; RESP 17; TEMP 95.9; O2SAT 93
--- NOTE | 2017-04-30 14:00 | HHI.DCPOC ---
Discharge Care Plan Diagnosis: (1) Diabetes (2) Cellulitis of foot, right (3) MRSA (methicillin resistant Staphylococcus aureus) Goals to Promote Your Health * To prevent worsening of your condition and complications * To maintain your health at the optimal level Directions to Meet Your Goals Take your medications as prescribed Follow your dietary instruction Follow activity as directed Keep your appointments as scheduled Take your immunizations and boosters as scheduled If your symptoms worsen call your PCP, if no PCP go to Urgent Care Center or Emergency Room Smoking is Dangerous to Your Health. Avoid second hand smoke Call the 24-hour hour crisis hotline for domestic abuse at Memo Veronica DO Apr 30, 2017 14:00
--- NOTE | 2017-04-30 14:07 | HHI.DS ---
Discharge Summary Admission Date Apr 27, 2017 at 17:58 Discharge Date: Apr 30, 2017 Admitting Diagnosis right foot celluitis, r/o osteomyelitis, s/p amputation of 3rd toe (1) Cellulitis of foot, right ICD Code: L03.115 Diagnosis: Principal (2) MRSA (methicillin resistant Staphylococcus aureus) ICD Code: A49.02 (3) Diabetes ICD Code: E11.9 Procedures None Brief History - From Admission 56-year-old female with a history of diabetes, hyperlipidemia, diabetic neuropathy, who recently underwent right third toe amputation on 04/13/17. She presents having been sent and by Dr. Lofton due to suspected osteoarthritis. Patient says she feels fine. Denies any pain. Denies any chest pain, shortness of breath, nausea, vomiting, fevers, chills, diarrhea, constipation. She does have chronic insensitivity to heat which has not changed. CBC/BMP: 04/30/17 0438 04/30/17 0438 Significant Findings Laboratory Tests Test 04/27/17 04/30/17 16:30 04:38 White Blood Count 15.6 TH/MM3 11.9 TH/MM3 (4.0-11.0) (4.0-11.0) Hemoglobin 10.6 GM/DL 10.8 GM/DL (11.6-15.3) (11.6-15.3) Hematocrit 33.4 % 34.0 % (35.0-46.0) (35.0-46.0) Mean Corpuscular Volume 74.7 FL 74.3 FL (80.0-100.0) (80.0-100.0) Mean Corpuscular Hemoglobin 23.6 PG 23.6 PG (27.0-34.0) (27.0-34.0) Mean Corpuscular Hemoglobin 31.6 % 31.8 % Concent (32.0-36.0) (32.0-36.0) Red Cell Distribution Width 17.5 % 17.5 % (11.6-17.2) (11.6-17.2) Neutrophils (%) (Auto) 71.8 % (16.0-70.0) Neutrophils # (Auto) 11.2 TH/MM3 (1.8-7.7) Erythrocyte Sedimentation Rate 49 mm/hr (0-30) Sodium Level 135 MEQ/L (136-145) Blood Urea Nitrogen 23 MG/DL (7-18) Estimat Glomerular Filtration 70 ML/MIN (>89) Rate Random Glucose 163 MG/DL 121 MG/DL (74-106) (74-106) Aspartate Amino Transf 9 U/L (15-37) (AST/SGOT) C-Reactive Protein 1.50 MG/DL (0.00-0.30) Albumin 3.3 GM/DL (3.4-5.0) Imaging Last Impressions Tumor Localization 04/28/17 0000 Signed Impressions: Service Date/Time: April 12:32 - CONCLUSION: Intense uptake thought represent inflammatory changes in the soft tissue. This only involves this one focal area, second and third phalanges. No other uptake is identified. Candido Schmid MD FACR Foot X-Ray 04/27/17 0000 Signed Impressions: Service Date/Time: Thursday, April 27, 2017 23:15 - CONCLUSION: 1. Status post interval amputation of the third distal, middle and proximal phalanges. 2. Status post more remote amputation of the first digit. 3. Chronic dislocation of the level of the second metatarsal phalangeal joint. 4. Extensive degenerative changes in the mid and hindfoot. 5. No definite destructive change or periosteal new bone formation. Memo Hoover MD Foot MRI 04/27/17 Signed Impressions: Service Date/Time: Thursday, April 27, 2017 21:00 - CONCLUSION: 1. Recent interval amputation of the third digit down to level of the metatarsal head with apparent post surgical changes and soft tissue swelling. 2. More remote amputation of the first digit down to the level of the first metatarsal base. 3. Chronic dislocation at the level of the second metatarsal phalangeal joint. 4. No definite evidence of osteomyelitis. 5. Extensive degenerative change in the metatarsal tarsal joints and intertarsal joints. Memo Hoover MD Pt update on day of discharge The patient was sitting comfortably in a chair. She had no acute complaints. She wanted to go home. She said she had plenty of pain medications at home. Hospital Course Sepsis/ Diabetic foot wound The pt had tachycardia and leukocytosis on admission. Right foot wound was noted. Podiatry and infectious disease was consulted. The pt was continued on Levaquin and daptomycin. Wound culture grew MRSA. MRI showed: Recent interval amputation of the third digit down to level of the metatarsal head with apparent post surgical changes and soft tissue swelling; More remote amputation of the first digit down to the level of the first metatarsal base; Chronic dislocation at the level of the second metatarsal phalangeal joint; No definite evidence of osteomyelitis. White blood cell scan showed: Intense uptake thought to represent inflammatory changes in the soft tissue. The pt will be discharged on oral antibiotics per infectious disease and will follow up with podiatry. Diabetes mellitus We held her oral diabetic meds. She was placed on a diabetic diet and an insulin sliding scale. She will resume her home medications upon discharge. Pt Condition on Discharge: Good Discharge Disposition: Discharge Home Discharge Time: > 30 minutes Discharge Instructions Follow up Referrals: PCP Follow-up - 1 Week Podiatry - 1 Week New Medications: Doxycycline Hyclate (Doxycycline Hyclate) 100 Mg Cap 100 MG PO BID Infection Days 14 Ref 0 CAP Continued Medications: Dapagliflozin (Farxiga) 10 Mg Tab 10 MG PO DAILY Blood Sugar Management #30 Ref 0 TAB Gabapentin (Gabapentin) 600 Mg Tab 600 MG PO HS #30 Ref 0 TAB Gemfibrozil (Gemfibrozil) 600 Mg Tab 600 MG PO BIDAC Take 30 minutes prior to breakfast and dinner. #60 Ref 0 TAB Hydrocodone-Acetaminophen (Hydrocodone-Acetaminophen) 10-325 mg Tab 1 TAB PO Q6H PRN foot pain #30 Ref 0 TAB Metformin (Metformin) 1,000 Mg Tab 1000 MG PO BIDPC With meals Blood Sugar Management #60 Ref 0 TAB Pantoprazole (Protonix) 40 Mg Tab 40 MG PO DAILY Ulcer Prevention #30 Ref 0 TAB Pioglitazone (Actos) 30 Mg Tab 30 MG PO DAILY Blood Sugar Management #30 Ref 0 TAB Memo Veronica DO Apr 30, 2017 14:07
[2017-04-30] MEDS ORDERED: DOXY100C PO (14:09)
--- NOTE | 2017-04-30 19:06 | PD.POD ---
Subjective Podiatric Problems RLE cellulitis. Pain scale used: 0-10 numeric scale Pain score: 0 Past Med/Surg/Social History Social History Smoking Status: Never Smoker Objective Vital Signs Vital Signs Date Time Temp Pulse Resp B/P Pulse Ox O2 Delivery O2 Flow Rate FiO2 04/30/17 12:00 95.9 89 17 95/55 93 04/30/17 08:00 96.8 94 17 108/55 96 04/30/17 00:00 97.0 91 16 99/53 97 04/29/17 20:00 97.8 110 16 113/55 96 Coded Allergies: Zosyn (Verified Allergy, Severe, Flushing, 04/27/17) BLURRED VISION, CHEST TIGHTNESS, SHORTNESS OF BREATH Vancomycin (Verified Adverse Reaction, Intermediate, ? REDMANS SYNDROME, ) *MDRO Multi-Drug Resistant Organism (Verified Adverse Reaction, Unknown, ) MRSA (foot) 02/2016, 07/21/16, 04/27/17 Other Results Last Impressions Tumor Localization 04/28/17 0000 Signed Impressions: Service Date/Time: April 12:32 - CONCLUSION: Intense uptake thought represent inflammatory changes in the soft tissue. This only involves this one focal area, second and third phalanges. No other uptake is identified. Candido Schmid MD FACR Foot X-Ray 04/27/17 0000 Signed Impressions: Service Date/Time: Thursday, April 27, 2017 23:15 - CONCLUSION: 1. Status post interval amputation of the third distal, middle and proximal phalanges. 2. Status post more remote amputation of the first digit. 3. Chronic dislocation of the level of the second metatarsal phalangeal joint. 4. Extensive degenerative changes in the mid and hindfoot. 5. No definite destructive change or periosteal new bone formation. Memo Hoover MD Foot MRI 04/27/17 0000 Signed Impressions: Service Date/Time: Thursday, April 27, 2017 21:00 - CONCLUSION: 1. Recent interval amputation of the third digit down to level of the metatarsal head with apparent post surgical changes and soft tissue swelling. 2. More remote amputation of the first digit down to the level of the first metatarsal base. 3. Chronic dislocation at the level of the second metatarsal phalangeal joint. 4. No definite evidence of osteomyelitis. 5. Extensive degenerative change in the metatarsal tarsal joints and intertarsal joints. Memo Hoover MD Laboratory Tests Test 04/27/17 04/29/17 04/30/17 16:30 05:29 04:38 Erythrocyte Sedimentation Rate 49 mm/hr Prothrombin Time 10.9 SEC Prothromb Time International 1.0 RATIO Ratio Activated Partial 30.1 SEC Thromboplast Time Total Bilirubin 0.2 MG/DL Aspartate Amino Transf 9 U/L (AST/SGOT) Alanine Aminotransferase 15 U/L (ALT/SGPT) Alkaline Phosphatase 92 U/L C-Reactive Protein 1.50 MG/DL Total Protein 8.0 GM/DL Albumin 3.3 GM/DL Lactic Acid Level 1.6 mmol/L White Blood Count 11.9 TH/MM3 Red Blood Count 4.58 MIL/MM3 Hemoglobin 10.8 GM/DL Hematocrit 34.0 % Mean Corpuscular Volume 74.3 FL Mean Corpuscular Hemoglobin 23.6 PG Mean Corpuscular Hemoglobin 31.8 % Concent Red Cell Distribution Width 17.5 % Platelet Count 283 TH/MM3 Mean Platelet Volume 8.7 FL Neutrophils (%) (Auto) 65.1 % Lymphocytes (%) (Auto) 26.3 % Monocytes (%) (Auto) 5.2 % Eosinophils (%) (Auto) 2.8 % Basophils (%) (Auto) 0.6 % Neutrophils # (Auto) 7.7 TH/MM3 Lymphocytes # (Auto) 3.1 TH/MM3 Monocytes # (Auto) 0.6 TH/MM3 Eosinophils # (Auto) 0.3 TH/MM3 Basophils # (Auto) 0.1 TH/MM3 CBC Comment DIFF FINAL Differential Comment Sodium Level 139 MEQ/L Potassium Level 3.8 MEQ/L Chloride Level 102 MEQ/L Carbon Dioxide Level 26.1 MEQ/L Anion Gap 11 MEQ/L Blood Urea Nitrogen 16 MG/DL Creatinine 0.62 MG/DL Estimat Glomerular Filtration 100 ML/MIN Rate Random Glucose 121 MG/DL Calcium Level 9.0 MG/DL Assessment & Plan Diagnosis: (1) Diabetic foot ulcer Status: Acute (2) Open wound of right foot Status: Acute (3) Cellulitis of foot, right Status: Acute A/P Spect CT is negative for bone involvement. Oral abx per ID. f/u with Dr Lofton. OK to d/c per Podiatry. Xochilt Kemp DPM Apr 30, 2017 19:06
[2017-04-30] MEDS ORDERED: DOCUSATE SODIUM 100 MG CAP PO SCH (21:00)
== END 2017-04-30 16:48 | disposition home or self-care (01) | DRG 862 ==
LOC: NEPC 12:54 → NEDA 17:58 → NEPFCDU 21:08 → N07B 04-28 19:17
PROVIDERS: ADMIT Hospitalist; ATTEND Hospitalist
DX: T81.4XXA Infection following a procedure, initial encounter (principal); A41.9 Sepsis, unspecified organism; L03.115 Cellulitis of right lower limb; B95.62 Methicillin resistant Staphylococcus aureus infection as the cause of diseases classified elsewhere; E11.42 Type 2 diabetes mellitus with diabetic polyneuropathy; K21.9 Gastro-esophageal reflux disease without esophagitis; E66.01 Morbid (severe) obesity due to excess calories; E78.00 Pure hypercholesterolemia, unspecified; E78.5 Hyperlipidemia, unspecified; Z68.33 Body mass index [BMI] 33.0-33.9, adult; Z79.84 Long term (current) use of oral hypoglycemic drugs
CPT/HCPCS: 73630; 73720; 76937; 78807; 78999; 80048; 80053; 82948; 83605; 85025; 85610; 85652; 85730; 86140; 86403; 87040; 87070; 87147; 87186; 87205; 96365; A9569; A9579; J0878; J1815; J1956

== ENCOUNTER 2017-09-14 19:25 | Inpatient (IN) | payer MEDICARE, OTHER ==
[~2017-09-14] VITALS: Ht 165.1 cm; Wt 92.1 kg
[~2017-09-14 19:25] MED LIST changes: +DAPA1TAB3 PO; +DOXY100C PO; +GEMF600T PO; -LEVA750T PO; -LYRI100C PO; +PIOG30 PO; -TRAZ100T4 PO
[2017-09-14 19:29] VITALS: BP 128/61; PULSE 124; RESP 18; TEMP 98.4; O2SAT 96
[2017-09-14 21:04] LABS: AUTOMATED NEUTROPHIL # 15.2 TH/MM3 (1.8-7.7); BASOPHIL # 0.2 TH/MM3 (0-0.2); BASOPHIL % 1.2 % (0.0-2.0); EOSINOPHIL # 0.1 TH/MM3 (0-0.4); EOSINOPHIL % 0.8 % (0.0-4.0); HEMATOCRIT 31.8 % (35.0-46.0); HEMO FLAGS DIFF FINAL; LYMPH % 16.4 % (9.0-44.0); LYMPHOCYTE # 3.2 TH/MM3 (1.0-4.8); MEAN CELL VOLUME 71.8 FL (80.0-100.0); MEAN CORPUSCULAR HEMOGLOBIN 22.5 PG (27.0-34.0); MEAN CORPUSCULAR HGB CONC 31.4 % (32.0-36.0); MONO % 4.5 % (0.0-8.0); NEUT % 77.1 % (16.0-70.0); PLATELET COUNT 437 TH/MM3 (150-450); RED BLOOD COUNT 4.44 MIL/MM3 (4.00-5.30); RED CELL DISTRIBUTION WIDTH 18.9 % (11.6-17.2); WHITE BLOOD COUNT 19.7 TH/MM3 (4.0-11.0)
[2017-09-14 21:22] LABS: BICARBONATE 23.5 MEQ/L (21.0-32.0); POTASSIUM 3.9 MEQ/L (3.5-5.1)
[2017-09-14] MEDS ORDERED: SODIUM CHLOR 0.9% 1000 ML INJ 1,000 ML IV ONE ×3 (21:30→23:15)
--- NOTE | 2017-09-14 21:34 | PD ---
HPI Chief Complaint: Skin Problem Time Seen by Provider: 21:07 Travel History International Travel<30 days: No Contact w/Intl Traveler<30days: No Traveled to known affect area: No History of Present Illness HPI The patient is a 57-year-old female who presents to the emergency department for osteomyelitis of the right foot. The patient was recently admitted to [facility] for osteomyelitis, had a prolonged hospitalization and debridement of the right foot. The patient is discharged home with a PICC line in the left upper extremity was on clindamycin and daptomycin for her osteomyelitis. The patient was seen by her makeup editor earlier today, Dr. Lofton, who referred her to the emergency department for admission and subsequent surgery tomorrow. The patient is advised she should be nothing by mouth after breakfast in the morning on 09/15/2017 for planned operative management in the evening by the makeup editor. The patient does have a history of diabetes and significant neuropathy to the right lower extremity with multiple amputations. She currently has the second toe of the right foot remaining, however, does note her foot is swollen, erythematous, warm to touch. She did have fevers prior hospitalization on August 27, denies any acute fevers now. She denies ingesting, shortness breath, nausea, vomiting, or abdominal pain. The patient's primary physician is Dr. Ivonne Bear. [facility] Past Medical History Arthritis: No Asthma: No Autoimmune Disease: No Blood Disorders: No Anxiety: Yes Depression: No Heart Rhythm Problems: No Cancer: No Cardiovascular Problems: No High Cholesterol: Yes Chemotherapy: No Chest Pain: No Congestive Heart Failure: No COPD: No Cerebrovascular Accident: No Diabetes: Yes Diminished Hearing: No Endocrine: No GERD: Yes Genitourinary: No Hiatal Hernia: No Immune Disorder: No Kidney Stones: No Musculoskeletal: No Neurologic: No Psychiatric: No Reproductive: No Respiratory: No Migraines: No Radiation Therapy: No Renal Failure: No Seizures: No Sickle Cell Disease: No Sleep Apnea: No Thyroid Disease: No Ulcer: No : 2 Para: 2 Miscarriage: 0 : 0 Past Surgical History Abdominal Surgery: No AICD: No Arteriovenous Shunt: No Cardiac Surgery: No Ear Surgery: No Endocrine Surgery: No Eye Surgery: No Genitourinary Surgery: No Gynecologic Surgery: No Insulin Pump: No Joint Replacement: Yes (Plates in ankle ) Neurologic Surgery: Yes Oral Surgery: No Pacemaker: No Thoracic Surgery: No Other Surgery: Yes (BILATERAL FEET) Social History Alcohol Use: No Tobacco Use: No Substance Use: No Allergies-Medications (Allergen,Severity, Reaction): Coded Allergies: piperacillin (Unverified Allergy, Severe, Flushing, 05/10/17) BLURRED VISION, CHEST TIGHTNESS, SHORTNESS OF BREATH tazobactam (Unverified Allergy, Severe, Flushing, 05/10/17) BLURRED VISION, CHEST TIGHTNESS, SHORTNESS OF BREATH vancomycin (Unverified Adverse Reaction, Intermediate, ? REDMANS SYNDROME , 05/10/17) *MDRO Multi-Drug Resistant Organism (Verified Adverse Reaction, Unknown, ) MRSA (foot) 02/2016, 07/21/16, 04/27/17 Reported Meds & Prescriptions Reported Meds & Active Scripts Active Hydrocodone-Acetaminophen 10-325 mg Tab 1 Tab PO Q6H PRN Reported Clindamycin (Clindamycin HCl) 300 Mg Cap 300 Mg PO Q12HR Xanax (Alprazolam) 0.25 Mg Tab 0.25 Mg PO Q8H PRN Zoloft (Sertraline HCl) 50 Mg Tab 50 Mg PO HS Gemfibrozil 600 Mg Tab 600 Mg PO BIDAC Take 30 minutes prior to breakfast and dinner. Farxiga (Dapagliflozin) 10 Mg Tab 10 Mg PO DAILY Actos (Pioglitazone HCl) 30 Mg Tab 30 Mg PO DAILY Metformin (Metformin HCl) 1,000 Mg Tab 1,000 Mg PO BIDPC With meals Protonix (Pantoprazole Sodium) 40 Mg Tab 40 Mg PO DAILY Gabapentin 600 Mg Tab 600 Mg PO HS Review of Systems Except as stated in HPI: all other systems reviewed are Neg General / Constitutional: No: Fever Cardiovascular: No: Chest Pain or Discomfort Respiratory: No: Shortness of Breath Gastrointestinal: No: Nausea, Vomiting, Abdominal Pain Musculoskeletal: Positive: Edema Neurologic: Positive: Sensory Disturbance (neuropathy) Physical Exam Narrative GENERAL: Awake, alert, pleasant 57 year-old female who appears her stated age and is in no acute respiratory distress. SKIN: Focused skin assessment warm/dry. HEAD: Atraumatic. Normocephalic. EYES: Pupils equal and round. No scleral icterus. No injection or drainage. ENT: No nasal bleeding or discharge. Mucous membranes pink and moist. NECK: Trachea midline. No JVD. CARDIOVASCULAR: Regular, tachycardic with a heart rate of 110. RESPIRATORY: No accessory muscle use. Clear to auscultation. Breath sounds equal bilaterally. GASTROINTESTINAL: Abdomen soft, non-tender, nondistended. No rebound tenderness. MUSCULOSKELETAL: The right foot is red, swollen, and warm to touch. Positive right dorsalis pedal pulse. On the second toe of the right foot remains. There is an ulceration of the bottom of the right foot as well as the medial aspect of the second toe. No tenderness. NEUROLOGICAL: Awake and alert. No obvious cranial nerve deficits. Motor grossly within normal limits. Normal speech. Tenderness to the right foot noted. PSYCHIATRIC: Appropriate mood and affect; insight and judgment normal. Data Data Last Documented VS Vital Signs Date Time Temp Pulse Resp B/P (MAP) Pulse Ox O2 Delivery O2 Flow Rate FiO2 09/14/17 19:29 98.4 124 18 128/61 (83) 96 Room Air Orders Orders Complete Blood Count With Diff (09/14/17 19:39) Basic Metabolic Panel (Bmp) (09/14/17 19:39) C-Reactive Protein (Crp) (09/14/17 19:39) Westergren Sedimentation Rate (09/14/17 19:39) Mri Foot W&W/O Contrast (09/14/17 ) Diet Npo (09/15/17 Lunch) Consent (09/14/17 21:06) Sodium Chlor 0.9% 1000 Ml Inj (Ns 1000 M (09/14/17 21:30) Morphine Inj (Morphine Inj) (09/14/17 22:15) Ondansetron Inj (Zofran Inj) (09/14/17 22:15) Admit Order (Ed Use Only) (09/14/17 23:07) Labs Laboratory Tests Test 09/14/17 20:40 White Blood Count 19.7 TH/MM3 Red Blood Count 4.44 MIL/MM3 Hemoglobin 10.0 GM/DL Hematocrit 31.8 % Mean Corpuscular Volume 71.8 FL Mean Corpuscular Hemoglobin 22.5 PG Mean Corpuscular Hemoglobin Concent 31.4 % Red Cell Distribution Width 18.9 % Platelet Count 437 TH/MM3 Mean Platelet Volume 9.4 FL Neutrophils (%) (Auto) 77.1 % Lymphocytes (%) (Auto) 16.4 % Monocytes (%) (Auto) 4.5 % Eosinophils (%) (Auto) 0.8 % Basophils (%) (Auto) 1.2 % Neutrophils # (Auto) 15.2 TH/MM3 Lymphocytes # (Auto) 3.2 TH/MM3 Monocytes # (Auto) 0.9 TH/MM3 Eosinophils # (Auto) 0.1 TH/MM3 Basophils # (Auto) 0.2 TH/MM3 CBC Comment DIFF FINAL Differential Comment Erythrocyte Sedimentation Rate 88 mm/hr Blood Urea Nitrogen 19 MG/DL Creatinine 0.68 MG/DL Random Glucose 165 MG/DL Calcium Level 9.7 MG/DL Sodium Level 138 MEQ/L Potassium Level 3.9 MEQ/L Chloride Level 103 MEQ/L Carbon Dioxide Level 23.5 MEQ/L Anion Gap 12 MEQ/L Estimat Glomerular Filtration Rate 89 ML/MIN C-Reactive Protein 8.00 MG/DL [facility] [place] Medical Decision Making Medical Screen Exam Complete: Yes Emergency Medical Condition: Yes Medical Record Reviewed: Yes Interpretation(s) Laboratory Tests Test 09/14/17 20:40 White Blood Count 19.7 TH/MM3 Red Blood Count 4.44 MIL/MM3 Hemoglobin 10.0 GM/DL Hematocrit 31.8 % Mean Corpuscular Volume 71.8 FL Mean Corpuscular Hemoglobin 22.5 PG Mean Corpuscular Hemoglobin Concent 31.4 % Red Cell Distribution Width 18.9 % Platelet Count 437 TH/MM3 Mean Platelet Volume 9.4 FL Neutrophils (%) (Auto) 77.1 % Lymphocytes (%) (Auto) 16.4 % Monocytes (%) (Auto) 4.5 % Eosinophils (%) (Auto) 0.8 % Basophils (%) (Auto) 1.2 % Neutrophils # (Auto) 15.2 TH/MM3 Lymphocytes # (Auto) 3.2 TH/MM3 Monocytes # (Auto) 0.9 TH/MM3 Eosinophils # (Auto) 0.1 TH/MM3 Basophils # (Auto) 0.2 TH/MM3 CBC Comment DIFF FINAL Differential Comment Erythrocyte Sedimentation Rate 88 mm/hr Blood Urea Nitrogen 19 MG/DL Creatinine 0.68 MG/DL Random Glucose 165 MG/DL Calcium Level 9.7 MG/DL Sodium Level 138 MEQ/L Potassium Level 3.9 MEQ/L Chloride Level 103 MEQ/L Carbon Dioxide Level 23.5 MEQ/L Anion Gap 12 MEQ/L Estimat Glomerular Filtration Rate 89 ML/MIN C-Reactive Protein 8.00 MG/DL Last Impressions Foot MRI 09/14/17 0000 Signed Impressions: Service Date/Time: Thursday, September 14, 2017 23:03 - CONCLUSION: 1. Very abnormal signal in the second metatarsal with surrounding inflammatory change most consistent with definite osteomyelitis. 2. There is abnormal signal seen in the third, fourth and fifth metatarsals, the cuboid, cuneiform bones, and the navicular bone and minimally at the base of the second proximal phalanx. These areas demonstrate milder abnormal signal in the T1 and T2-weighted images and enhances raising the possibility of osteomyelitis involving these areas. 3. Much milder abnormal signal in the distal anterior superior aspect of the calcaneus and the talus. These changes are less prominent T1 weighted images making osteomyelitis involving these structures less likely. Arcenio Curiel MD Differential Diagnosis Differential diagnosis includes diabetic foot ulcer, osteomyelitis, acute on chronic infection, neuropathy, abscess. Narrative Course IV was established, labs are drawn and sent, and the patient was placed on cardiac telemetry monitoring and continuous pulse oximetry monitoring. The patient is already taken her antibiotics today, takes daptomycin once a day and clindamycin 4 times a day. MRI of the right foot was ordered for possible osteomyelitis. The on-call medical service was paged for admission. MRI is positive for osteomyelitis. The patient was administered Cipro to cover for pseudomonas and clindamycin to cover for MRSA. I discussed the patient with the on-call medical service who agrees with admission and podiatry consultation. Sepsis Criteria SIRS Criteria (2 or more): Heart rate over 90, WBC > 02312, < 4000 or > 10% bands Sepsis Criteria (SIRS+source): Infect source susp/known Physician Communication Physician Communication I discussed the patient with the on-call medical team who agrees with admission. Diagnosis Primary Impression: Osteomyelitis of right foot Qualified Codes: M86.9 - Osteomyelitis, unspecified Additional Impression: Sepsis Qualified Codes: A41.9 - Sepsis, unspecified organism Admitting Information Admitting Physician Requests: Admit Condition: Stable Aureliano Stovall MD Sep 14, 2017 21:34
[2017-09-14] MEDS ORDERED: MORPHINE SULFATE 2 MG/ML INJ IV PUSH ONE (22:15)
[2017-09-14] MEDS ORDERED: ONDANSETRON HCL 4 MG/2 ML VIAL IV PUSH ONE (22:15)
[2017-09-14] MEDS ORDERED: CIPROFLOXACIN 400 MG PREMIX 200 ML IV ONE (23:15)
[2017-09-14] MEDS ORDERED: CLINDAMYCIN 600 MG/DEX PREMIX 50 ML IV ONE (23:15)
[2017-09-14] MEDS ORDERED: GADODIAMIDE PF 287 MG/ML 5 ML VIAL (for RAD MRI) IVCONTRAST ONE (23:26)
[2017-09-14] MEDS ORDERED: GLUCAGON 1 MG/ML VIAL OTHER PRN (23:30)
[2017-09-14] MEDS ORDERED: DEXTROSE 50% IN WATER 50 ML VIAL(D50) IV PUSH PRN (23:30)
[2017-09-14] MEDS ORDERED: SENNOSIDES 8.6 MG TAB PO PRN (23:45)
[2017-09-14] MEDS ORDERED: ONDANSETRON HCL 4 MG/2 ML VIAL IVP PRN (23:45)
[2017-09-14] MEDS ORDERED: ACETAMINOPHEN 325 MG TAB PO PRN (23:45)
[2017-09-14] MEDS ORDERED: MAGNESIUM HYDROXIDE SUSP 30 ML CUP PO PRN (23:45)
[2017-09-14] MEDS ORDERED: SODIUM CHLORIDE 0.9% FLUSH 10 ML FLUSH IV FLUSH PRN (23:45)
[2017-09-14] MEDS ORDERED: NALOXONE HCL 0.4 MG/ML AMP IV PUSH PRN (23:45)
[2017-09-14] MEDS ORDERED: ALPR.25 PO (23:58)
[2017-09-14] MEDS ORDERED: CLIN300C5 PO (23:58)
[2017-09-14] MEDS ORDERED: ZOLO50TA PO (23:58)
[2017-09-15] VITALS (7 sets, daily range): BP systolic 98–124; BP diastolic 54–59; PULSE 64–87; RESP 16–20; TEMP 97.4–98.2; O2SAT 94–99
--- NOTE | 2017-09-15 00:09 | RADRPT ---
EXAM DATE/TIME: 09/14/2017 23:03 [facility] COMPARISON: FOOT RIGHT COMPLETE ([id number]), April 27, 2017, 23:15. MRI FOOT RIGHT W & W/O CONTRAST, April 27, 017, 21:00. INDICATIONS : Osteomyelitis. CONTRAST: 18 cc Omniscan (gadodiamide) IV MEDICAL HISTORY : Diabetes mellitus type 2. SURGICAL HISTORY : Bilateral foot sx, Right foot amputation, Left foot plate and screws. ENCOUNTER: Initial ACUITY: 1 week PAIN SCORE: 110 LOCATION: Right front foot. TECHNIQUE: Multiplanar, multisequence MRI examination was performed without contrast and after the intravenous a dministration of gadolinium. FINDINGS: BONE/CARTILAGE: The patient is status post amputation at the proximal aspect of the first metatarsal, and of the thir d digit at the level of the third MTP joint. There is destruction and prominent prominent soft tissue edema and inflammatory change surrounding the second metatarsal. There does appear to be a suspected ulcer at the plantar aspect of the foot at the level of the second metatarsal head. There do appear to be minimal abnormal signal at the base of the second proximal phalanx. The remaining aspect of the proximal second phalanx and the middle and distal phalanx of the second digit are intact. There is a bnormal signal seen as increased signal on the T2-weighted images at the proximal mid portions of the third, fourth, and fifth metatarsals, at the cuneiform bones, navicular bone, and cuboid. These area s do demonstrate low signal on the T1-weighted images and enhance on the postcontrast images. There i s mild abnormal signal seen in the anterior superior aspect of the calcaneus at the anterior subtalar joint region. This is nonspecific. There some very minimal signal is not seen in the midportion of t he talus. These areas appear less prominent on the T1 weighted images. TENDONS: All of the visualized tendons are intact. MISCELLANEOUS: Plantar aponeurosis is intact. Sinus tarsi is within normal limits. CONCLUSION: 1. Very abnormal signal in the second metatarsal with surrounding inflammatory change most consistent with definite osteomyelitis. 2. There is abnormal signal seen in the third, fourth and fifth metatarsals, the cuboid, cuneiform john thierry, and the navicular bone and minimally at the base of the second proximal phalanx. These areas dem onstrate milder abnormal signal in the T1 and T2-weighted images and enhances raising the possibility of osteomyelitis involving these areas. 3. Much milder abnormal signal in the distal anterior superior aspect of the calcaneus and the talus . These changes are less prominent T1 weighted images making osteomyelitis involving these structures less likely. Arcenio Curiel MD on September 14, 2017 at 23:56 Board Certified Radiologist. This report was verified electronically.
--- NOTE | 2017-09-15 06:55 | HHI.HP ---
[facility] Service [facility] Primary Care Physician Ivonne Bear MD Admission Diagnosis suspected osteomyelitis right foot failed outpatient therapy Diagnoses: Travel History International Travel<30 Days: No Contact w/Intl Traveler <30 Da: No Traveled to Known Affected Are: No History of Present Illness 57-year-old female with a past medical history of diabetes mellitus, hyperlipidemia, GERD and multiple foot infections presents to the ED with concern for osteomyelitis of the right foot. The patient was recently discharged from [facility] for osteomyelitis and had a prolonged hospitalization with debridement of the right foot. She was discharged home with a PICC line and was on clindamycin and daptomycin for osteomyelitis. She was seen by her sys dir earlier today, Dr. Pate, he referred her to the emergency department for further evaluation. WBC 19.7. MRI of the right foot showed osteomyelitis in the second metatarsal with possible osteomyelitis in the third fourth and fifth metatarsals, the cuboid and cuneiform bones and the navicular bone at the base of the second proximal phalanx. ESR 88. The patient denies fevers or chills. Review of Systems Denies fever or chills Denies blurry vision, otorrhea, rhinorrhea Denies sore throat and cough No chest pain, palpitations, shortness of breath No abdominal pain Denies constipation/diarrhea/nausea/vomiting Denies muscle pain/weakness No rashes Past Family Social History Past Medical History Diabetes mellitus Hyperlipidemia GERD Past Surgical History 5 previous foot surgeries for infections Left ankle reconstruction Reported Medications Reported Meds & Active Scripts Active Hydrocodone-Acetaminophen 10-325 mg Tab 1 Tab PO Q6H PRN Reported Clindamycin (Clindamycin HCl) 300 Mg Cap 300 Mg PO Q12HR Xanax (Alprazolam) 0.25 Mg Tab 0.25 Mg PO Q8H PRN Zoloft (Sertraline HCl) 50 Mg Tab 50 Mg PO HS Gemfibrozil 600 Mg Tab 600 Mg PO BIDAC Take 30 minutes prior to breakfast and dinner. Farxiga (Dapagliflozin) 10 Mg Tab 10 Mg PO DAILY Actos (Pioglitazone HCl) 30 Mg Tab 30 Mg PO DAILY Metformin (Metformin HCl) 1,000 Mg Tab 1,000 Mg PO BIDPC With meals Protonix (Pantoprazole Sodium) 40 Mg Tab 40 Mg PO DAILY Gabapentin 600 Mg Tab 600 Mg PO HS Allergies: Coded Allergies: piperacillin (Unverified Allergy, Severe, Flushing, 05/10/17) BLURRED VISION, CHEST TIGHTNESS, SHORTNESS OF BREATH tazobactam (Unverified Allergy, Severe, Flushing, 05/10/17) BLURRED VISION, CHEST TIGHTNESS, SHORTNESS OF BREATH vancomycin (Unverified Adverse Reaction, Intermediate, ? REDMANS SYNDROME , 05/10/17) *MDRO Multi-Drug Resistant Organism (Verified Adverse Reaction, Unknown, ) MRSA (foot) 02/2016, 07/21/16, 04/27/17 Family History Mother with diabetes mellitus. Father with CAD. Social History Denies tobacco, alcohol and illicit drugs. Physical Exam Vital Signs Vital Signs Date Time Temp Pulse Resp B/P (MAP) Pulse Ox O2 Delivery O2 Flow Rate FiO2 09/15/17 03:01 85 16 104/59 (74) 94 Room Air 09/15/17 01:18 81 16 124/55 (78) 98 Room Air 09/14/17 19:29 98.4 124 18 128/61 (83) 96 Room Air Physical Exam GENERAL: female lying in bed. SKIN: No rashes, ecchymoses or lesions. Cool and dry. HEAD: Atraumatic. Normocephalic. No temporal or scalp tenderness. EYES: Pupils equal round and reactive. Extraocular motions intact. No scleral icterus. No injection or drainage. ENT: Nose without bleeding, purulent drainage or septal hematoma. Throat without erythema, tonsillar hypertrophy or exudate. Uvula midline. Airway patent. NECK: Trachea midline. No JVD or lymphadenopathy. Supple, nontender, no meningeal signs. CARDIOVASCULAR: Regular rate and rhythm without murmurs, gallops, or rubs. RESPIRATORY: Clear to auscultation. Breath sounds equal bilaterally. No wheezes , rales, or rhonchi. GASTROINTESTINAL: Abdomen soft, non-tender, nondistended. No hepato-splenomegaly , or palpable masses. No guarding. MUSCULOSKELETAL: Right foot is red, swollen and warm to the touch. 2+ DP pulse. There is an ulceration on the bottom of the right foot as well as the medial aspect of the second toe. Right lower extremity is swollen but nontender. No calf tenderness. NEUROLOGICAL: Awake and alert. Cranial nerves II through XII intact. Motor and sensory grossly within normal limits. Normal speech. Laboratory Laboratory Tests Test 09/14/17 20:40 09/15/17 00:45 White Blood Count 19.7 Red Blood Count 4.44 Hemoglobin 10.0 Hematocrit 31.8 Mean Corpuscular Volume 71.8 Mean Corpuscular Hemoglobin 22.5 Mean Corpuscular Hemoglobin Concent 31.4 Red Cell Distribution Width 18.9 Platelet Count 437 Mean Platelet Volume 9.4 Neutrophils (%) (Auto) 77.1 Lymphocytes (%) (Auto) 16.4 Monocytes (%) (Auto) 4.5 Eosinophils (%) (Auto) 0.8 Basophils (%) (Auto) 1.2 Neutrophils # (Auto) 15.2 Lymphocytes # (Auto) 3.2 Monocytes # (Auto) 0.9 Eosinophils # (Auto) 0.1 Basophils # (Auto) 0.2 CBC Comment DIFF FINAL Differential Comment Erythrocyte Sedimentation Rate 88 Blood Urea Nitrogen 19 Creatinine 0.68 Random Glucose 165 Calcium Level 9.7 Sodium Level 138 Potassium Level 3.9 Chloride Level 103 Carbon Dioxide Level 23.5 Anion Gap 12 Estimat Glomerular Filtration Rate 89 C-Reactive Protein 8.00 Lactic Acid Level 0.9 Date/Time Source Procedure Growth Status 09/15/17 00:45 Blood Peripheral Aerobic Blood Culture Pending Received 09/15/17 00:45 Blood Peripheral Anaerobic Blood Culture Pending Received Result Diagram: 09/14/17203909/14/172039 Caprini VTE Risk Assessment Caprini VTE Risk Assessment: No/Low Risk (score <= 1) Caprini Risk Assessment Model Point Value = 1 Point Value = 2 Point Value = 3 Point Value = 5 Age 41-60 Minor surgery BMI > 25 kg/m2 Swollen legs Varicose veins or History of unexplained or recurrent spontaneous Oral contraceptives or hormone replacement Sepsis (< 1 month) Serious lung disease, including pneumonia (< 1 month) Abnormal pulmonary function Acute myocardial infarction Congestive heart failure (< 1 month) History of inflammatory bowel disease Medical patient at bed rest Age 61-74 Arthroscopic surgery Major open surgery (> 45 min) Laparoscopic surgery (> 45 min) Malignancy Confined to bed (> 72 hours) Immobilizing plaster cast Central venous access Age >= 75 History of VTE Family history of VTE Factor V Leiden Prothrombin [id number] Lupus anticoagulant Anticardiolipin antibodies Elevated serum homocysteine Heparin-induced thrombocytopenia Other congenital or acquired thrombophilia Stroke (< 1 month) Elective arthroplasty Hip, pelvis, or leg fracture Acute spinal cord injury (< 1 month) Prophylaxis Regimen Total Risk Factor Score Risk Level Prophylaxis Regimen 0-1 Low Early ambulation 2 Moderate Order ONE of the following: *Sequential Compression Device (SCD) *Heparin 5000 units SQ BID 3-4 Higher Order ONE of the following medications: *Heparin 5000 units SQ TID *Enoxaparin/Lovenox 40 mg SQ daily (WT < 150 kg, CrCl > 30 mL/min) *Enoxaparin/Lovenox 30 mg SQ daily (WT < 150 kg, CrCl > 10-29 mL/min) *Enoxaparin/Lovenox 30 mg SQ BID (WT < 150 kg, CrCl > 30 mL/min) AND/OR *Sequential Compression Device (SCD) 5 or more Highest Order ONE of the following medications: *Heparin 5000 units SQ TID (Preferred with Epidurals) *Enoxaparin/Lovenox 40 mg SQ daily (WT < 150 kg, CrCl > 30 mL/min) *Enoxaparin/Lovenox 30 mg SQ daily (WT < 150 kg, CrCl > 10-29 mL/min) *Enoxaparin/Lovenox 30 mg SQ BID (WT < 150 kg, CrCl > 30 mL/min) AND *Sequential Compression Device (SCD) Assessment and Plan Assessment and Plan Assessment/plan: 1. Osteomyelitis of the right foot MRI of the right foot showed osteomyelitis in the second metatarsal with possible osteomyelitis in the third fourth and fifth metatarsals, the cuboid and cuneiform bones and the navicular bone at the base of the second proximal phalanx. Patient with leukocytosis and elevated ESR Podiatry consulted, plan for OR later tonight. Patient will be nothing by mouth after breakfast. Infectious disease consulted, appreciate recommendations Continue daptomycin and clindamycin, added Cipro for Pseudomonas coverage Blood cultures pending Monitor for signs of sepsis 2. Diabetes mellitus SSI Monitor blood glucose 3. Dyslipidemia Continue gemfibrozil 4. GERD Continue home FEN NPO after breakfast Electrolytes: Monitor and replete prn NS at 100 cc/hr Holding pharmacologic anticoagulation in anticipation of operative intervention later tonight Case discussed with ER physician length Physician Certification 2 Midnight Certification Type: Admission for Inpatient Services Order for Inpatient Services The services are ordered in accordance with Medicare regulations or non- Medicare payer requirements, as applicable. In the case of services not specified as inpatient-only, they are appropriately provided as inpatient services in accordance with the 2-midnight benchmark. Estimated LOS (days): 2 2 days is the estimated time the patient will need to remain in the hospital, assuming treatment plan goals are met and no additional complications. Post-Hospital Plan: Not yet determined Heather Ravi MD Sep 15, 2017 06:55
[2017-09-15 07:41] LABS: AUTOMATED NEUTROPHIL # 6.8 TH/MM3 (1.8-7.7); BASOPHIL # 0.1 TH/MM3 (0-0.2); BASOPHIL % 1.5 % (0.0-2.0); EOSINOPHIL # 0.2 TH/MM3 (0-0.4); EOSINOPHIL % 1.8 % (0.0-4.0); HEMATOCRIT 26.1 % (35.0-46.0); HEMO FLAGS DIFF FINAL; LYMPHOCYTE # 2.4 TH/MM3 (1.0-4.8); MEAN CELL VOLUME 73.8 FL (80.0-100.0); MEAN CORPUSCULAR HEMOGLOBIN 23.2 PG (27.0-34.0); MEAN CORPUSCULAR HGB CONC 31.5 % (32.0-36.0); MONO % 5.9 % (0.0-8.0); NEUT % 66.8 % (16.0-70.0); PLATELET COUNT 297 TH/MM3 (150-450); RED BLOOD COUNT 3.53 MIL/MM3 (4.00-5.30); RED CELL DISTRIBUTION WIDTH 18.7 % (11.6-17.2); WHITE BLOOD COUNT 10.2 TH/MM3 (4.0-11.0)
[2017-09-15] MEDS: GEMFIBROZIL 600 MG TAB PO SCH ×2 (07:52→16:00)
[2017-09-15] MEDS: CLINDAMYCIN INJ 600 MG in SODIUM CHLORIDE 0.9% INJ 100 ML IV SCH ×3 (07:52→14:00)
[2017-09-15] MEDS: INSULIN ASPART SUPPLEMENTAL SCALE SQ SCH ×4 (07:53→21:13)
[2017-09-15 07:58] LABS: POTASSIUM 3.5 MEQ/L (3.5-5.1)
[2017-09-15] MEDS: PANTOPRAZOLE SOD 40 MG DELAYED RELEASE TAB PO SCH (09:00)
[2017-09-15] MEDS: SODIUM CHLORIDE 0.9% FLUSH 10 ML FLUSH IV FLUSH SCH ×2 (09:00→21:11)
[2017-09-15] MEDS: DAPTOMYCIN IV SCH (09:20)
[2017-09-15] MEDS: SODIUM CHLOR 0.9% 1000 ML INJ 1,000 ML IV SCH ×2 (09:20→19:45)
[2017-09-15] MEDS: SODIUM CHLORIDE 0.9% IV SCH (09:20)
[2017-09-15] MEDS ORDERED: NEOSTIGMINE 5 MG/5 ML SYRINGE IV PUSH ONE (12:00)
[2017-09-15] MEDS ORDERED: LIDOCAINE HCL 1% PF 5 ML SYRINGE OTHER ONE (12:00)
[2017-09-15] MEDS ORDERED: ROCURONIUM INJ 50 MG/5 ML SYRINGE IV PUSH ONE (12:00)
[2017-09-15] MEDS ORDERED: ONDANSETRON HCL 4 MG/2 ML VIAL IV ONE (12:00)
[2017-09-15] MEDS ORDERED: GLYCOPYRROLATE 1 MG/5 ML SYRINGE IV PUSH ONE (12:00)
[2017-09-15] MEDS ORDERED: ePHEDrine/NS 25 MG/5 ML SYRINGE IV ONE (12:00)
[2017-09-15] MEDS ORDERED: PROPOFOL 200 MG/20 ML AMP IV ONE (12:00)
[2017-09-15] MEDS: oxyCODONE/ACETAMINOPHEN 5 MG/325 MG TAB PO PRN ×2 (12:11→21:11)
[2017-09-15] MEDS ORDERED: CIPROFLOXACIN 400 MG PREMIX 200 ML IV SCH (12:30)
--- NOTE | 2017-09-15 15:30 | HHI.PR ---
Addendum to Inpatient Note Addendum Reason: Additional Documentation Additional Information admiiiteted this am awake and alert lungs clear regular rhtyhm no calf swelling or tenderness, dressing in place ff as OP by Dr. Young of Infectious disease and Dr. Pate- podiatry was discharged recently from [facility] with foot OM- recieved IV Cubicin for at least 2 weeks- Picc in place for DM- on oral hypoglycemics- Farxiga and Metformin and Actos- good hypoglycemic awareness no history of CAD, CVA - plan for surgery this pm by Podiatry - restart home meds Renetta Cunningham MD Sep 15, 2017 15:30
[2017-09-15] MEDS ORDERED: fentaNYL CITRATE 250 MCG/5 ML AMP ONE (15:58)
[2017-09-15] MEDS ORDERED: POVIDONE IODINE 5% (ANTISEPSIS KIT) 4 APPLICATIONS EACH NARE PRN (16:30)
[2017-09-15] MEDS ORDERED: LACTATED RINGER'S 1000 ML IV PRN (16:30)
[2017-09-15] MEDS ORDERED: CHLORHEXIDINE GLUCONATE 2 % 1 PACK (2 CLOTHS) TOPICAL PRN (16:30)
[2017-09-15] MEDS ORDERED: METOPROLOL TARTRATE 25 MG TAB PO PRN (16:30)
[2017-09-15] MEDS ORDERED: SODIUM CHLORID 0.9% 500 ML IV PRN (16:30)
--- NOTE | 2017-09-15 16:41 | PD.CONS ---
History of Present Illness Service Podiatry Consult Requested By ED Reason for Consult R foot osteomyelitis Primary Care Physician Ivonne Bear MD Diagnoses: History of Present Illness 57-year-old female was seen in my clinic with palpable bone to plantar right foot and evidence of osteomyelitis from previous scans. After lengthy discussion with patient about long-term treatment options and past failed treatment options, she agreed to go to hospital. The patient was recently at [facility] with sepsis and assessed for osteomyelitis where she was recommended and refused amputation, but agreed to I& D of abscess Right foot. She was discharged home with a PICC line and was on clindamycin and daptomycin for osteomyelitis. Past Family Social History Allergies: Coded Allergies: piperacillin (Unverified Allergy, Severe, Flushing, 05/10/17) BLURRED VISION, CHEST TIGHTNESS, SHORTNESS OF BREATH tazobactam (Unverified Allergy, Severe, Flushing, 05/10/17) BLURRED VISION, CHEST TIGHTNESS, SHORTNESS OF BREATH vancomycin (Unverified Adverse Reaction, Intermediate, ? REDMANS SYNDROME , 05/10/17) *MDRO Multi-Drug Resistant Organism (Verified Adverse Reaction, Unknown, ) MRSA (foot) 02/2016, 07/21/16, 04/27/17 Past Medical History Diabetes mellitus Hyperlipidemia GERD Past Surgical History 5 previous foot surgeries for infections Left ankle reconstruction Active Ordered Medications Current Medications Medications (Trade) Dose Ordered Sig/Danny Route Start Time Stop Time Status Last Admin (D50w (Vial) Inj) 50 ml UNSCH PRN IV PUSH 09/14/17 23:30 (Glucagon Inj) 1 mg UNSCH PRN OTHER 09/14/17 23:30 (NovoLOG SUPPLEMENTAL SCALE) 1 ACHS SLIDING SCALE SQ 09/15/17 08:00 09/15/17 07:53 (NS Flush) 2 ml UNSCH PRN IV FLUSH 09/14/17 23:45 (NS Flush) 2 ml BID IV FLUSH 09/15/17 09:00 (Tylenol) 650 mg Q4H PRN PO 09/14/17 23:45 (Zofran Inj) 4 mg Q6H PRN IVP 09/14/17 23:45 (Narcan Inj) 0.4 mg UNSCH PRN IV PUSH 09/14/17 23:45 (Milk Of Magnesia Liq) 30 ml Q12H PRN PO 09/14/17 23:45 (Senokot) 17.2 mg Q12H PRN PO 09/14/17 23:45 Daptomycin 358 mg/ Sodium Chloride 100 ml @ 200 mls/hr Q24H IV 09/15/17 09:00 09/15/17 09:20 Sodium Chloride 1,000 ml @ 100 mls/hr Q10H IV 09/15/17 09:00 09/15/17 09:20 Clindamycin Phosphate 600 mg/ Sodium Chloride 104 ml @ 208 mls/hr Q6H IV 09/15/17 07:00 09/15/17 13:36 Ciprofloxacin/ Dextrose 200 ml @ 200 mls/hr Q12H IV 09/15/17 12:30 09/15/17 12:11 (Lopid) 600 mg BIDAC PO 09/15/17 07:00 09/15/17 07:52 (Protonix) 40 mg DAILY PO 09/15/17 09:00 (Zoloft) 50 mg HS PO 09/15/17 21:00 (Percocet 5-325 Mg) 1 tab Q6H PRN PO 09/15/17 11:00 09/15/17 12:11 Lactated Ringer's 1,000 ml @ 30 mls/hr Q24H PRN IV 09/15/17 16:30 09/18/17 16:29 Sodium Chloride 500 ml @ 30 mls/hr [id number] PRN IV 09/15/17 16:30 09/18/17 16:29 (Lopressor) 25 mg HITCHER PRN PO 09/15/17 16:30 09/18/17 16:29 (Betadine 5% Antisepsis Kit) 1 applic HITCHER PRN EACH NARE 09/15/17 16:30 09/18/17 16:29 (Chlorhexidine 2% Cloth) 3 pack HITCHER PRN TOPICAL 09/15/17 16:30 09/18/17 16:29 Family History Mother with diabetes mellitus. Father with CAD. Social History Denies tobacco, alcohol and illicit drugs. Physical Exam Vital Signs Vital Signs Date Time Temp Pulse Resp B/P (MAP) Pulse Ox O2 Delivery O2 Flow Rate FiO2 09/15/17 15:44 97.4 67 20 98/54 (69) 97 09/15/17 13:11 14 09/15/17 12:00 98.2 87 18 112/55 (74) 99 09/15/17 07:19 79 16 115/55 (75) 95 Room Air 09/15/17 03:01 85 16 104/59 (74) 94 Room Air 09/15/17 01:18 81 16 124/55 (78) 98 Room Air 09/14/17 19:29 98.4 124 18 128/61 (83) 96 Room Air Physical Exam Right foot plantar ulceration 2nd metatarsal head area with palpable bone noted. Mild purulent drainage. Edema to forefoot. history of hallux and 3rd digit amputations that have healed well. Collapsed medial longitudinal arch with rocker bottom foot Right foot. Sensation absent Laboratory Laboratory Tests Test 09/14/17 20:40 09/15/17 00:45 09/15/17 06:29 White Blood Count 19.7 10.2 Red Blood Count 4.44 3.53 Hemoglobin 10.0 8.2 Hematocrit 31.8 26.1 Mean Corpuscular Volume 71.8 73.8 Mean Corpuscular Hemoglobin 22.5 23.2 Mean Corpuscular Hemoglobin Concent 31.4 31.5 Red Cell Distribution Width 18.9 18.7 Platelet Count 437 297 Mean Platelet Volume 9.4 9.6 Neutrophils (%) (Auto) 77.1 66.8 Lymphocytes (%) (Auto) 16.4 24.0 Monocytes (%) (Auto) 4.5 5.9 Eosinophils (%) (Auto) 0.8 1.8 Basophils (%) (Auto) 1.2 1.5 Neutrophils # (Auto) 15.2 6.8 Lymphocytes # (Auto) 3.2 2.4 Monocytes # (Auto) 0.9 0.6 Eosinophils # (Auto) 0.1 0.2 Basophils # (Auto) 0.2 0.1 CBC Comment DIFF FINAL DIFF FINAL Differential Comment Erythrocyte Sedimentation Rate 88 Blood Urea Nitrogen 19 12 Creatinine 0.68 0.47 Random Glucose 165 196 Calcium Level 9.7 8.0 Sodium Level 138 141 Potassium Level 3.9 3.5 Chloride Level 103 111 Carbon Dioxide Level 23.5 21.0 Anion Gap 12 9 Estimat Glomerular Filtration Rate 89 137 C-Reactive Protein 8.00 Lactic Acid Level 0.9 Date/Time Source Procedure Growth Status 09/15/17 00:45 Blood Peripheral Aerobic Blood Culture Pending Received 09/15/17 00:45 Blood Peripheral Anaerobic Blood Culture Pending Received Result Diagram: 09/15/17 0629 09/15/17 0629 Imaging Last 72 hours Impressions Foot MRI 09/14/17 0000 Signed Impressions: Service Date/Time: Thursday, September 14, 2017 23:03 - CONCLUSION: 1. Very abnormal signal in the second metatarsal with surrounding inflammatory change most consistent with definite osteomyelitis. 2. There is abnormal signal seen in the third, fourth and fifth metatarsals, the cuboid, cuneiform bones, and the navicular bone and minimally at the base of the second proximal phalanx. These areas demonstrate milder abnormal signal in the T1 and T2-weighted images and enhances raising the possibility of osteomyelitis involving these areas. 3. Much milder abnormal signal in the distal anterior superior aspect of the calcaneus and the talus. These changes are less prominent T1 weighted images making osteomyelitis involving these structures less likely. Arcenio Curiel MD Assessment and Plan Assessment and Plan Osteomyelitis Right 2nd metatarsal with draining sinus. To OR for Right foot transmetatarsal amputation Discussed probability of adductovarus contracture following procedure and recommended she undergo tendoachilles lengthening Right to counteract forces causing the known complication. She consented. Charcot foot Right MRI findings consistent with charcot deformity changes of midfoot and rearfoot. I do not suspect osteomyelitis there. Will send sample of proximal 2nd metatarsal to confirm excision of infected bone. Berto Lofton DPM Sep 15, 2017 16:41
[2017-09-15] MEDS ORDERED: NEOMYCIN/POLYMYXIN 1 ML G.U. IRRIGANT ONE (17:06)
--- NOTE | 2017-09-15 18:36 | PD.ID.CON ---
History of Present Illness Service ID Consult Requested By Dr Ravi Reason for Consult L DFI Primary Care Physician Ivonne Bear MD Diagnoses: History of Present Illness 57-year-old diabetic female witjh long standing L planar wounsd and osteomyelitis Pt is on daptomycin, followed by Dr Jean She presented with persistent drainage and swelling and redness of the foot Her blood sugars are running quite high according to her Her ESR is 88 and WBC on presentation was 19, though repeat dropped to 10 Review of Systems Except as stated in HPI: all other systems reviewed are Neg Past Family Social History Allergies: Coded Allergies: piperacillin (Unverified Allergy, Severe, Flushing, 05/10/17) BLURRED VISION, CHEST TIGHTNESS, SHORTNESS OF BREATH tazobactam (Unverified Allergy, Severe, Flushing, 05/10/17) BLURRED VISION, CHEST TIGHTNESS, SHORTNESS OF BREATH vancomycin (Unverified Adverse Reaction, Intermediate, ? REDMANS SYNDROME , 05/10/17) *MDRO Multi-Drug Resistant Organism (Verified Adverse Reaction, Unknown, ) MRSA (foot) 02/2016, 07/21/16, 04/27/17 Past Medical History Diabetes mellitus Hyperlipidemia GERD Past Surgical History 5 previous foot surgeries for infections Left ankle reconstruction Active Ordered Medications Medications where reviewed in EMR Antibiotics Include: cipro clindamycin Family History DM, CAD Social History No Tobacco. No ETOH. No Illicit Drugs. Physical Exam Vital Signs Vital Signs Date Time Temp Pulse Resp B/P (MAP) Pulse Ox O2 Delivery O2 Flow Rate FiO2 09/15/17 15:44 97.4 67 20 98/54 (69) 97 09/15/17 13:11 14 09/15/17 12:00 98.2 87 18 112/55 (74) 99 09/15/17 07:19 79 16 115/55 (75) 95 Room Air 09/15/17 03:01 85 16 104/59 (74) 94 Room Air 09/15/17 01:18 81 16 124/55 (78) 98 Room Air 09/14/17 19:29 98.4 124 18 128/61 (83) 96 Room Air Physical Exam CONSTITUTIONAL/GENERAL: This is an obese female patient, in no apparent distress. TUBES/LINES/DRAINS: SKIN: No jaundice, rashes, or lesions. Skin temperature appropriate. Not diaphoretic. HEAD: Atraumatic. Normocephalic. EYES: Pupils equal and round and reactive. Extraocular motions intact. No scleral icterus. No injection or drainage. Fundi not examined. ENT: Hearing grossly normal. Nose without bleeding or purulent drainage. Throat without visible erythema, exudates, masses, or lesions. NECK: Trachea midline. Supple, nontender. No palpable thyroid enlargement or nodularity. CARDIOVASCULAR: Regular rate and rhythm without murmurs, gallops, or rubs. No JVD. Peripheral pulses symmetric. RESPIRATORY/CHEST: Symmetric, unlabored respirations. Clear to auscultation. Breath sounds equal bilaterally. No wheezes, rales, or rhonchi. GASTROINTESTINAL: Abdomen soft, non-tender, nondistended. No hepato-splenomegaly , or palpable masses. No guarding. Bowel sounds present. GENITOURINARY: Without palpable bladder distension. MUSCULOSKELETAL: Extremities without clubbing, cyanosis, or edema. No joint tenderness or effusion noted. No calf tenderness. No mottling or clubbing. STATUS LOCALIS: L foot with significant edema, erythema extending to mid foot and draining plantar ulceration sp hallux and 3rd digit amputation LYMPHATICS: No palpable cervical or supraclavicular adenopathy. NEUROLOGICAL: Awake and alert. Motor and sensory grossly within normal limits. Follows commands. Clear speech. Moves all extremities. PSYCHIATRIC: No obvious anxiety/depression. no apparent hallucinations or other psychotic thought process. Laboratory Laboratory Tests Test 09/14/17 20:40 09/15/17 00:45 09/15/17 06:29 White Blood Count 19.7 10.2 Red Blood Count 4.44 3.53 Hemoglobin 10.0 8.2 Hematocrit 31.8 26.1 Mean Corpuscular Volume 71.8 73.8 Mean Corpuscular Hemoglobin 22.5 23.2 Mean Corpuscular Hemoglobin Concent 31.4 31.5 Red Cell Distribution Width 18.9 18.7 Platelet Count 437 297 Mean Platelet Volume 9.4 9.6 Neutrophils (%) (Auto) 77.1 66.8 Lymphocytes (%) (Auto) 16.4 24.0 Monocytes (%) (Auto) 4.5 5.9 Eosinophils (%) (Auto) 0.8 1.8 Basophils (%) (Auto) 1.2 1.5 Neutrophils # (Auto) 15.2 6.8 Lymphocytes # (Auto) 3.2 2.4 Monocytes # (Auto) 0.9 0.6 Eosinophils # (Auto) 0.1 0.2 Basophils # (Auto) 0.2 0.1 CBC Comment DIFF FINAL DIFF FINAL Differential Comment Erythrocyte Sedimentation Rate 88 Blood Urea Nitrogen 19 12 Creatinine 0.68 0.47 Random Glucose 165 196 Calcium Level 9.7 8.0 Sodium Level 138 141 Potassium Level 3.9 3.5 Chloride Level 103 111 Carbon Dioxide Level 23.5 21.0 Anion Gap 12 9 Estimat Glomerular Filtration Rate 89 137 C-Reactive Protein 8.00 Lactic Acid Level 0.9 Date/Time Source Procedure Growth Status 09/15/17 00:45 Blood Peripheral Aerobic Blood Culture Pending Received 09/15/17 00:45 Blood Peripheral Anaerobic Blood Culture Pending Received Result Diagram: 09/15/17 0629 09/15/17 0629 Imaging Last Impressions Foot MRI 09/14/17 0000 Signed Impressions: Service Date/Time: Thursday, September 14, 2017 23:03 - CONCLUSION: 1. Very abnormal signal in the second metatarsal with surrounding inflammatory change most consistent with definite osteomyelitis. 2. There is abnormal signal seen in the third, fourth and fifth metatarsals, the cuboid, cuneiform bones, and the navicular bone and minimally at the base of the second proximal phalanx. These areas demonstrate milder abnormal signal in the T1 and T2-weighted images and enhances raising the possibility of osteomyelitis involving these areas. 3. Much milder abnormal signal in the distal anterior superior aspect of the calcaneus and the talus. These changes are less prominent T1 weighted images making osteomyelitis involving these structures less likely. Arcenio Curiel MD Assessment and Plan Assessment and Plan DFI with L 2nd MT osteo in a pt with underlying Scharco foot - abn signal on MRI - ESR of 88 - leukocytosis - soft tissue changes cw infx - previously diagnosed osteo 2/2 MRSA cont clindamycin dc cipro agree with plan for sugery will need op specimen for clx since pt can develop resistance to current tx including daptomycin Danica Stevenson MD Sep 15, 2017 18:36
[2017-09-15] MEDS ORDERED: DO NOT ADM ANY ANTICOAGULANT DRUGS PRN (18:43)
--- NOTE | 2017-09-15 18:51 | HHI.PR ---
Immediate Post Op Note Procedure Date: Sep 15, 2017 Pre Op Diagnosis: 1. osteomyelitis Right 2nd metatarsal 2. gastroc-soleal equinus right ankle Post Op Diagnosis: Same Surgeon: Berto Lofton DPM Evaluation Specialist(s): Staff Procedure: 1. Transmetatarsal amputation right foot 2. Percutaneous tendoachilles lengthening Right Findings: Consistent with diagnosis. 0 degrees dorsiflexion at ankle joint with knee both flexed and extended. Three stab incisions made, 1cm apart, 3cm proximal to achilles insertion, medial/ lateral/medial respectively, and foot dorsiflexed to achieve 5 degrees dorsiflexion at ankle joint. Incisions closed with 2-0 nylon, followed by xeroform, 4x4, tegaderm. Ulceration noted to Right plantar 2nd metatarsal head area with purulent drainage and palpable bone in wound. 2nd digit rigidly contracted and in extension at MTP joint. Digits 4 and 5 present with flexion contracture. Previous partial 1st ray and 3rd digit amputations. Fish-mouth incision made encompassing forefoot at level of proximal metatarsals and saw blade utilized to transect proximal 1st and 5th metatarsals. 2,3,4 metatarsals disarticulated at TMT joint and removed as specimen and sent to pathology at Right forefoot. Culture taken R foot. Bone from residual 5th metatarsal sent as biopsy, followed by irrigation and tying off of all bleeders, then closure with 2-0 nylon. Dressing with xeroform, 4x4, abd x 3, cast padding, and short posterior splint at 90 degrees. Additional Information: Nonweightbearing Right foot in posterior splint Tourniquet Right proximal calf @250mmHg Complications: None Specimen(s) removed: 1. Right forefoot to pathology 2. Culture right foot 3. Bone right residual 5th metatarsal for biopsy Estimated blood loss: 50mL Anesthesia: General Drains: None IVF Tourniquet time (min at mmHg) see nurse notes Patient to: PACU Patient Condition: Good Date/Time of Procedure: SEE SURGICAL CARE RECORD Berto Lofton DPM Sep 15, 2017 18:51
--- NOTE | 2017-09-15 20:28 | RADRPT ---
EXAM DATE/TIME: 09/15/2017 19:53 [facility] COMPARISON: FOOT RIGHT COMPLETE ([id number]), April 27, 2017, 23:15. INDICATIONS : Post right distal foot amputation MEDICAL HISTORY : Diabetes mellitus type 2. SURGICAL HISTORY : Bilateral foot sx, Right foot amputation, Left foot plate and screws ENCOUNTER: Initial ACUITY: 1 day PAIN SCORE: 0/10 LOCATION: Right Foot FINDINGS: 3 views of the right foot are performed in fiberglass splint. There is forefoot amputation with resi dual tarsal bones and a small fragment from the proximal 1st metatarsal. No radiopaque foreign body seen. CONCLUSION: Postop forefoot amputation. Martín Benoit MD on September 15, 2017 at 20:25 Board Certified Radiologist. This report was verified electronically.
[2017-09-15] MEDS: SERTRALINE HCL 50 MG TAB PO SCH (21:10)
[2017-09-16 00:09] VITALS: BP 99/53; PULSE 80; RESP 18; TEMP 98.3; O2SAT 95
[2017-09-16] MEDS: CLINDAMYCIN INJ 600 MG in SODIUM CHLORIDE 0.9% INJ 100 ML IV SCH ×3 (01:22→13:20)
[2017-09-16] MEDS: SODIUM CHLOR 0.9% 1000 ML INJ 1,000 ML IV SCH ×2 (05:50→17:58)
[2017-09-16] MEDS: GEMFIBROZIL 600 MG TAB PO SCH ×2 (05:51→16:04)
[2017-09-16] MEDS: oxyCODONE/ACETAMINOPHEN 5 MG/325 MG TAB PO PRN ×3 (06:02→19:24)
[2017-09-16 06:09] VITALS: BP 115/52; PULSE 83; RESP 16; TEMP 98.1; O2SAT 95
[2017-09-16 07:47] VITALS: BP 103/58; PULSE 75; RESP 20; TEMP 97.8; O2SAT 93
[2017-09-16] MEDS: INSULIN ASPART SUPPLEMENTAL SCALE SQ SCH ×4 (09:13→20:24)
[2017-09-16] MEDS: PANTOPRAZOLE SOD 40 MG DELAYED RELEASE TAB PO SCH (09:13)
[2017-09-16] MEDS: DAPTOMYCIN IV SCH (09:14)
[2017-09-16] MEDS: SODIUM CHLORIDE 0.9% IV SCH (09:14)
[2017-09-16] MEDS: SODIUM CHLORIDE 0.9% FLUSH 10 ML FLUSH IV FLUSH SCH ×2 (09:14→20:13)
--- NOTE | 2017-09-16 09:21 | HHI.PR ---
Subjective Remarks pain controlled afebrile Objective Vitals Vital Signs Date Time Temp Pulse Resp B/P (MAP) Pulse Ox O2 Delivery O2 Flow Rate FiO2 09/16/17 07:47 97.8 75 20 103/58 (73) 93 09/16/17 06:09 98.1 83 16 115/52 (73) 95 09/16/17 00:09 98.3 80 18 99/53 (68) 95 09/15/17 23:40 98 Nasal Cannula 2.00 09/15/17 21:35 97.7 64 16 101/56 (71) 99 09/15/17 19:30 98.1 72 20 102/56 (71) 96 Nasal Cannula 2 09/15/17 19:15 70 20 100/51 (67) 96 Nasal Cannula 2 09/15/17 19:00 64 20 112/57 (75) 96 Nasal Cannula 2 09/15/17 18:46 98.1 68 20 112/53 (72) 96 Nasal Cannula 09/15/17 15:44 97.4 67 20 98/54 (69) 97 09/15/17 13:11 14 09/15/17 12:00 98.2 87 18 112/55 (74) 99 I/O 09/15/17 09/15/17 09/15/17 09/16/17 09/16/17 09/16/17 07:00 15:00 23:00 07:00 15:00 23:00 Intake Total 3250 ml 400 ml 1200 ml Output Total 50 ml 1 ml Balance 3250 ml 350 ml 1199 ml Intake IV Total 3250 ml 1200 ml Other 400 ml Output Urine Total 1 ml Estimated Blood Loss 50 ml # Voids 6 Result Diagram: 09/15/17 0629 09/15/17 0629 Imaging Last Impressions Foot X-Ray 09/15/17 0000 Signed Impressions: Service Date/Time: August 19:53 - CONCLUSION: Postop forefoot amputation. Martín Benoit MD Foot MRI 09/14/17 0000 Signed Impressions: Service Date/Time: Thursday, September 14, 2017 23:03 - CONCLUSION: 1. Very abnormal signal in the second metatarsal with surrounding inflammatory change most consistent with definite osteomyelitis. 2. There is abnormal signal seen in the third, fourth and fifth metatarsals, the cuboid, cuneiform bones, and the navicular bone and minimally at the base of the second proximal phalanx. These areas demonstrate milder abnormal signal in the T1 and T2-weighted images and enhances raising the possibility of osteomyelitis involving these areas. 3. Much milder abnormal signal in the distal anterior superior aspect of the calcaneus and the talus. These changes are less prominent T1 weighted images making osteomyelitis involving these structures less likely. Arcenio Curiel MD Objective Remarks awake and alert,oriented x 3 lungs clear regular rhythm right foot- post dressing in place, moves all extremities spontaneously Procedures 09/15- TMA of right foot A/P Assessment and Plan 57 years old female Osteomyelitis of the right foot S/P TMA right foot 09/15 -Podiatry ff - dressing changes post op wound care per Podiatry -ID ff- currently on Daptomycin and clindamycin - ff pathology - dpeneding on pathology- to determine course of antibiotic- patient has a PICC line in place Diabetes mellitus -SSI -Monitor blood glucose - restart her oral hypoglycemics agent- Metformin, Farxiga Dyslipidemia -Continue gemfibrozil GERD -Continue home meds Microcytic anemia - check iron studies, ferritin may be elevated as it is acute phase reactant due to OM - denies any melena or hematochezia check CXR- PICC line placement - remove if not in place PT consult CM consult Renetta Eddy MD Sep 16, 2017 09:21
[2017-09-16 11:37] VITALS: BP 97/56; PULSE 83; RESP 20; TEMP 98.6; O2SAT 96
--- NOTE | 2017-09-16 13:30 | RADRPT ---
EXAM DATE/TIME: 09/16/2017 12:47 This report includes an Addendum and supersedes previous reports for this exam. [facility] COMPARISON: CHEST SINGLE AP, July 29, 2016, 18:32. INDICATIONS : Shortness of breath. MEDICAL HISTORY : Hypercholesterolemia. Gastroesophageal reflux disease. Diabetic neuropathy SURGICAL HISTORY : Bilateral foot surgery ENCOUNTER: Initial ACUITY: 1 day PAIN SCORE: 0/10 LOCATION: upper chest FINDINGS: A single view of the chest demonstrates the lungs to be symmetrically aerated without evidence of mas s, infiltrate or effusion. The cardiomediastinal contours are unremarkable. Osseous structures are intact. CONCLUSION: 1. No acute abnormality or significant interval change. Mane Le MD on September 16, 2017 at 13:27 Board Certified Radiologist. This report was verified electronically. ADDENDUM: There has been placement of a left-sided PICC line. The tip abuts the lateral wall of the SVC at the confluence. This will generate difficulty with any blood aspiration from the catheter. Would suggest advancing the catheter approximately 3 cm for better positioning of the tip of the catheter. Martín Armstrong Jr., MD on September 16, 2017 at 14:03 Board Certified Radiologist. This report was verified electronically.
[2017-09-16 15:24] LABS: ANION GAP 9 MEQ/L (5-15); AST (GOT) 11 U/L (15-37); BICARBONATE 23.5 MEQ/L (21.0-32.0); BLOOD UREA NITROGEN 5 MG/DL (7-18); CHLORIDE 108 MEQ/L (98-107); GLOMERULAR FILTRATION RATE 96 ML/MIN (>89); POTASSIUM 3.6 MEQ/L (3.5-5.1); SODIUM (NA) 140 MEQ/L (136-145)
[2017-09-16 15:31] LABS: ALKALINE PHOSPHATASE 70 U/L (45-117); ALT (GPT) 13 U/L (10-53); FERRITIN 125 NG/ML (8-252); TOTAL BILIRUBIN ADULT 0.2 MG/DL (0.2-1.0); TRANSFERRIN IRON PROFILE 184 MG/DL (200-360)
[2017-09-16 15:46] VITALS: BP 99/49; PULSE 80; RESP 20; TEMP 100.1; O2SAT 96
--- NOTE | 2017-09-16 16:11 | HHI.IDPN ---
Subjective Subjective Remarks pt is sp TMA doing OK no fever Allergies: Coded Allergies: piperacillin (Unverified Allergy, Severe, Flushing, 05/10/17) BLURRED VISION, CHEST TIGHTNESS, SHORTNESS OF BREATH tazobactam (Unverified Allergy, Severe, Flushing, 05/10/17) BLURRED VISION, CHEST TIGHTNESS, SHORTNESS OF BREATH vancomycin (Unverified Adverse Reaction, Intermediate, ? REDMANS SYNDROME , 05/10/17) Objective . Vital Signs Date Time Temp Pulse Resp B/P (MAP) Pulse Ox O2 Delivery O2 Flow Rate FiO2 09/16/17 15:46 100.1 80 20 99/49 (66) 96 09/16/17 11:37 98.6 83 20 97/56 (70) 96 09/16/17 07:47 97.8 75 20 103/58 (73) 93 09/16/17 06:09 98.1 83 16 115/52 (73) 95 09/16/17 00:09 98.3 80 18 99/53 (68) 95 09/15/17 23:40 98 Nasal Cannula 2.00 09/15/17 21:35 97.7 64 16 101/56 (71) 99 09/15/17 19:30 98.1 72 20 102/56 (71) 96 Nasal Cannula 2 09/15/17 19:15 70 20 100/51 (67) 96 Nasal Cannula 2 09/15/17 19:00 64 20 112/57 (75) 96 Nasal Cannula 2 09/15/17 18:46 98.1 68 20 112/53 (72) 96 Nasal Cannula 09/16/17 09/16/17 09/17/17 15:00 23:00 07:00 Intake Total 720 ml Balance 720 ml Intake Oral 720 ml # Voids 2 # Bowel Movements 1 . Laboratory Tests Test 09/14/17 20:40 09/15/17 06:29 White Blood Count 19.7 TH/MM3 10.2 TH/MM3 Red Blood Count 4.44 MIL/MM3 3.53 MIL/MM3 Hemoglobin 10.0 GM/DL 8.2 GM/DL Hematocrit 31.8 % 26.1 % Mean Corpuscular Volume 71.8 FL 73.8 FL Mean Corpuscular Hemoglobin 22.5 PG 23.2 PG Mean Corpuscular Hemoglobin Concent 31.4 % 31.5 % Red Cell Distribution Width 18.9 % 18.7 % Platelet Count 437 TH/MM3 297 TH/MM3 Mean Platelet Volume 9.4 FL 9.6 FL Neutrophils (%) (Auto) 77.1 % 66.8 % Lymphocytes (%) (Auto) 16.4 % 24.0 % Monocytes (%) (Auto) 4.5 % 5.9 % Eosinophils (%) (Auto) 0.8 % 1.8 % Basophils (%) (Auto) 1.2 % 1.5 % Neutrophils # (Auto) 15.2 TH/MM3 6.8 TH/MM3 Lymphocytes # (Auto) 3.2 TH/MM3 2.4 TH/MM3 Monocytes # (Auto) 0.9 TH/MM3 0.6 TH/MM3 Eosinophils # (Auto) 0.1 TH/MM3 0.2 TH/MM3 Basophils # (Auto) 0.2 TH/MM3 0.1 TH/MM3 CBC Comment DIFF FINAL DIFF FINAL Differential Comment Erythrocyte Sedimentation Rate 88 mm/hr Laboratory Tests Test 09/14/17 20:40 09/15/17 00:45 09/15/17 06:29 09/16/17 14:46 Blood Urea Nitrogen 19 MG/DL 12 MG/DL 5 MG/DL Creatinine 0.68 MG/DL 0.47 MG/DL 0.64 MG/DL Random Glucose 165 MG/DL 196 MG/DL 257 MG/DL Calcium Level 9.7 MG/DL 8.0 MG/DL 7.8 MG/DL Sodium Level 138 MEQ/L 141 MEQ/L 140 MEQ/L Potassium Level 3.9 MEQ/L 3.5 MEQ/L 3.6 MEQ/L Chloride Level 103 MEQ/L 111 MEQ/L 108 MEQ/L Carbon Dioxide Level 23.5 MEQ/L 21.0 MEQ/L 23.5 MEQ/L Anion Gap 12 MEQ/L 9 MEQ/L 9 MEQ/L Estimat Glomerular Filtration Rate 89 ML/MIN 137 ML/MIN 96 ML/MIN C-Reactive Protein 8.00 MG/DL Lactic Acid Level 0.9 mmol/L Total Protein 6.9 GM/DL Albumin 2.4 GM/DL Alkaline Phosphatase 70 U/L Aspartate Amino Transf (AST/SGOT) 11 U/L Alanine Aminotransferase (ALT/SGPT) 13 U/L Total Bilirubin 0.2 MG/DL Iron Level 9 MCG/DL Total Iron Binding Capacity 258 MCG/DL Percent Iron Saturation 3.5 % Ferritin 125 NG/ML Microbiology Date/Time Source Procedure Growth Status 09/15/17 00:45 Blood Peripheral Aerobic Blood Culture - Preliminary NO GROWTH IN 1 DAY Resulted 09/15/17 00:45 Blood Peripheral Anaerobic Blood Culture - Preliminary NO GROWTH IN 1 DAY Resulted 09/15/17 00:40 Blood Peripheral Aerobic Blood Culture - Preliminary NO GROWTH IN 1 DAY Resulted 09/15/17 00:40 Blood Peripheral Anaerobic Blood Culture - Preliminary NO GROWTH IN 1 DAY Resulted 09/15/17 17:45 Wound Foot Fungal Smear - Final NO FUNGAL ELEMENTS SEEN. Resulted 09/15/17 17:45 Wound Foot Fungal Culture Pending Resulted 09/15/17 17:45 Wound Foot Acid Fast Stain - Final NO ACID FAST BACILLI SEEN Resulted 09/15/17 17:45 Wound Foot Mycobacterial Culture Pending Resulted 09/15/17 17:45 Wound Foot Gram Stain - Final Resulted 09/15/17 17:45 Wound Foot Wound Culture - Preliminary NO GROWTH IN 24 HOURS. Resulted Imaging Last Impressions Chest X-Ray 09/16/17 0000 Signed Impressions: Service Date/Time: Saturday, September 16, 2017 12:47 - CONCLUSION: 1. No acute abnormality or significant interval change. Mane Le MD ADDENDUM: There has been placement of a left-sided PICC line. The tip abuts the lateral wall of the SVC at the confluence. This will generate difficulty with any blood aspiration from the catheter. Would suggest advancing the catheter approximately 3 cm for better positioning of the tip of the catheter. Martín Armstrong Jr., MD Foot X-Ray 09/15/17 0000 Signed Impressions: Service Date/Time: August 19:53 - CONCLUSION: Postop forefoot amputation. Martín Benoit MD Foot MRI 09/14/17 0000 Signed Impressions: Service Date/Time: Thursday, September 14, 2017 23:03 - CONCLUSION: 1. Very abnormal signal in the second metatarsal with surrounding inflammatory change most consistent with definite osteomyelitis. 2. There is abnormal signal seen in the third, fourth and fifth metatarsals, the cuboid, cuneiform bones, and the navicular bone and minimally at the base of the second proximal phalanx. These areas demonstrate milder abnormal signal in the T1 and T2-weighted images and enhances raising the possibility of osteomyelitis involving these areas. 3. Much milder abnormal signal in the distal anterior superior aspect of the calcaneus and the talus. These changes are less prominent T1 weighted images making osteomyelitis involving these structures less likely. Arcenio Curiel MD Physical Exam CONSTITUTIONAL/GENERAL: This is an obese female patient, in no apparent distress. TUBES/LINES/DRAINS: SKIN: No jaundice, rashes, or lesions. MUSCULOSKELETAL:sp L foot TMA post op dressing in place Assessment & Plan Remarks DFI with L 2nd MT osteo in a pt with underlying Scharco foot sp TMA cont daptomycin @ home Danica Stevenson MD Sep 16, 2017 16:11
[2017-09-16 17:38] LABS: HEMOGLOBIN A1b 2.6 %; HEMOGLOBIN LA1C 2.9 %; HEMOGLOBIN P3 4.3 %
[2017-09-16] MEDS: metFORMIN HCL 500 MG TAB PO SCH (17:55)
[2017-09-16 20:00] VITALS: BP 126/56; PULSE 76; RESP 18; TEMP 97.7; O2SAT 97
[2017-09-16] MEDS: CLINDAMYCIN 600 MG/NS PREMIX 50 ML IV SCH (20:12)
[2017-09-16] MEDS: SERTRALINE HCL 50 MG TAB PO SCH (20:12)
--- NOTE | 2017-09-16 20:34 | PD.POD ---
Subjective Podiatric Problems s/p Transmetatarsal amputation right foot 09/15/17 Dr Lofton. Resting well. No pain. Past Med/Surg/Social History Social History Smoking Status: Never Smoker Objective Vital Signs Vital Signs Date Time Temp Pulse Resp B/P (MAP) Pulse Ox O2 Delivery O2 Flow Rate FiO2 09/16/17 15:46 100.1 80 20 99/49 (66) 96 09/16/17 11:37 98.6 83 20 97/56 (70) 96 09/16/17 07:47 97.8 75 20 103/58 (73) 93 09/16/17 06:09 98.1 83 16 115/52 (73) 95 09/16/17 00:09 98.3 80 18 99/53 (68) 95 09/15/17 23:40 98 Nasal Cannula 2.00 09/15/17 21:35 97.7 64 16 101/56 (71) 99 Coded Allergies: piperacillin (Unverified Allergy, Severe, Flushing, 05/10/17) BLURRED VISION, CHEST TIGHTNESS, SHORTNESS OF BREATH tazobactam (Unverified Allergy, Severe, Flushing, 05/10/17) BLURRED VISION, CHEST TIGHTNESS, SHORTNESS OF BREATH vancomycin (Unverified Adverse Reaction, Intermediate, ? REDMANS SYNDROME , 05/10/17) Other Results Microbiology Date/Time Source Procedure Growth Status 09/15/17 00:45 Blood Peripheral Aerobic Blood Culture - Preliminary NO GROWTH IN 1 DAY Resulted 09/15/17 00:45 Blood Peripheral Anaerobic Blood Culture - Preliminary NO GROWTH IN 1 DAY Resulted 09/15/17 17:45 Wound Foot Fungal Smear - Final NO FUNGAL ELEMENTS SEEN. Resulted 09/15/17 17:45 Wound Foot Fungal Culture Pending Resulted Last 72 hours Impressions Chest X-Ray 09/16/17 0000 Signed Impressions: Service Date/Time: Saturday, September 16, 2017 12:47 - CONCLUSION: 1. No acute abnormality or significant interval change. Mane Le MD ADDENDUM: There has been placement of a left-sided PICC line. The tip abuts the lateral wall of the SVC at the confluence. This will generate difficulty with any blood aspiration from the catheter. Would suggest advancing the catheter approximately 3 cm for better positioning of the tip of the catheter. Martín Armstrong Jr., MD Foot X-Ray 09/15/17 0000 Signed Impressions: Service Date/Time: August 19:53 - CONCLUSION: Postop forefoot amputation. Martín Benoit MD Foot MRI 09/14/17 0000 Signed Impressions: Service Date/Time: Thursday, September 14, 2017 23:03 - CONCLUSION: 1. Very abnormal signal in the second metatarsal with surrounding inflammatory change most consistent with definite osteomyelitis. 2. There is abnormal signal seen in the third, fourth and fifth metatarsals, the cuboid, cuneiform bones, and the navicular bone and minimally at the base of the second proximal phalanx. These areas demonstrate milder abnormal signal in the T1 and T2-weighted images and enhances raising the possibility of osteomyelitis involving these areas. 3. Much milder abnormal signal in the distal anterior superior aspect of the calcaneus and the talus. These changes are less prominent T1 weighted images making osteomyelitis involving these structures less likely. Arcenio Curiel MD Assessment & Plan A/P Osteomyelitis Right 2nd metatarsal, s/p TMA R foot 09/15/17 Dr Lofton Surgical cure, as all of 2nd metatarsal was removed with amputation. Bone from 5th metatarsal sent as biopsy, anticipate it will show charcot changes and no osteomyelitis Culture with no growth so far, which was taken prior to closure Patient already has follow up in clinic with me next Tuesday for dressing change. Keep bandage/splint as is until then. Nonweightbearing RLE Continue antibiotics per ID If new PICC placed tommie, I am ok with discharge home tomorrow Charcot foot Right Chronic condition, not inactive phase, but could flare due to recent surgery. Patient already NWB RLE. Will monitor long-term, as outpatient. Berto Lofton DPM Sep 16, 2017 20:34
[2017-09-17] VITALS: BP 101/54; PULSE 83; RESP 18; TEMP 98.2; O2SAT 93
[2017-09-17] MEDS: CLINDAMYCIN 600 MG/NS PREMIX 50 ML IV SCH ×3 (01:51→12:35)
[2017-09-17] MEDS: oxyCODONE/ACETAMINOPHEN 5 MG/325 MG TAB PO PRN ×2 (02:25→13:51)
[2017-09-17 04:00] VITALS: BP 139/61; PULSE 75; RESP 18; TEMP 98; O2SAT 95
[2017-09-17] MEDS: GEMFIBROZIL 600 MG TAB PO SCH ×2 (06:25→17:11)
[2017-09-17] MEDS: SODIUM CHLORIDE 0.9% FLUSH 10 ML FLUSH IV FLUSH SCH (07:53)
[2017-09-17] MEDS: PANTOPRAZOLE SOD 40 MG DELAYED RELEASE TAB PO SCH (07:53)
[2017-09-17] MEDS: metFORMIN HCL 500 MG TAB PO SCH ×2 (07:53→17:11)
[2017-09-17] MEDS: INSULIN ASPART SUPPLEMENTAL SCALE SQ SCH ×3 (08:00→17:00)
[2017-09-17 08:09] VITALS: BP 121/60; PULSE 76; RESP 18; TEMP 98.3; O2SAT 18; O2SAT 99
[2017-09-17] MEDS: SODIUM CHLORIDE 0.9% IV SCH (08:34)
[2017-09-17] MEDS: DAPTOMYCIN IV SCH (08:34)
[2017-09-17] MEDS ORDERED: PIOGLITAZONE HCL 30 MG TAB PO SCH (09:00)
--- NOTE | 2017-09-17 10:05 | HHI.PR ---
Subjective Remarks doing very well no fever no complains Objective Vitals Vital Signs Date Time Temp Pulse Resp B/P (MAP) Pulse Ox O2 Delivery O2 Flow Rate FiO2 09/17/17 08:09 98.3 76 18 121/60 (80) 18 09/17/17 04:00 98.0 75 18 139/61 (87) 95 09/17/17 00:00 98.2 83 18 101/54 (70) 93 09/16/17 20:00 97.7 76 18 126/56 (79) 97 09/16/17 15:46 100.1 80 20 99/49 (66) 96 09/16/17 11:37 98.6 83 20 97/56 (70) 96 I/O 09/16/17 09/16/17 09/16/17 09/17/17 09/17/17 09/17/17 07:00 15:00 23:00 07:00 15:00 23:00 Intake Total 1200 ml 1820 ml 150 ml 50 ml Output Total 1 ml Balance 1199 ml 1820 ml 150 ml 50 ml Intake Oral 720 ml IV Total 1200 ml 1100 ml 150 ml 50 ml Output Urine Total 1 ml # Voids 6 2 4 # Bowel Movements 1 Result Diagram: 09/15/17 0629 09/16/17 1446 Imaging Last Impressions Chest X-Ray 09/16/17 0000 Signed Impressions: Service Date/Time: Saturday, September 16, 2017 12:47 - CONCLUSION: 1. No acute abnormality or significant interval change. Mane Le MD ADDENDUM: There has been placement of a left-sided PICC line. The tip abuts the lateral wall of the SVC at the confluence. This will generate difficulty with any blood aspiration from the catheter. Would suggest advancing the catheter approximately 3 cm for better positioning of the tip of the catheter. Martín Armstrong Jr., MD Foot X-Ray 09/15/17 0000 Signed Impressions: Service Date/Time: August 19:53 - CONCLUSION: Postop forefoot amputation. Martín Benoit MD Foot MRI 09/14/17 0000 Signed Impressions: Service Date/Time: Thursday, September 14, 2017 23:03 - CONCLUSION: 1. Very abnormal signal in the second metatarsal with surrounding inflammatory change most consistent with definite osteomyelitis. 2. There is abnormal signal seen in the third, fourth and fifth metatarsals, the cuboid, cuneiform bones, and the navicular bone and minimally at the base of the second proximal phalanx. These areas demonstrate milder abnormal signal in the T1 and T2-weighted images and enhances raising the possibility of osteomyelitis involving these areas. 3. Much milder abnormal signal in the distal anterior superior aspect of the calcaneus and the talus. These changes are less prominent T1 weighted images making osteomyelitis involving these structures less likely. Arcenio Curiel MD Objective Remarks awake and alert,oriented x 3 lungs clear regular rhythm right foot- post dressing in place, moves all extremities spontaneously Procedures 09/15- TMA of right foot A/P Assessment and Plan 57 years old female Osteomyelitis of the right foot S/P TMA right foot 09/15 -Podiatry ff - dressing changes post op wound care per Podiatry -ID ff- currently on Daptomycin and clindamycin - ff pathology- pending - home today after PICC place- to complete course of Daptomycin Diabetes mellitus, type 2 -SSI -Monitor blood glucose - restart her oral hypoglycemics agent- Metformin, Farxiga Dyslipidemia -Continue gemfibrozil GERD -Continue home meds Microcytic anemia - check iron studies, ferritin may be elevated as it is acute phase reactant due to OM - denies any melena or hematochezia - iron studies pending PICC dislodged - VAscular access for PICC exchange - called Vascular access team- states they have to have blood culture negative x 48 hours- inform that that this does not have to be- already ff by ID - reordered to be done today and can be DC after procedure- -d/w staff- [er Vascular Access team- discussed with ID- if remains afebrile till 4 pm- procedure can be done this pm and can be discharge. - PT daily Per patient she already has everything at home- IV antibiotics OP ff up with ID- Renetta Bean MD Sep 17, 2017 10:05
[2017-09-17 12:11] VITALS: BP 106/61; PULSE 92; RESP 18; TEMP 98; O2SAT 99
[2017-09-17 16:04] VITALS: BP 121/68; PULSE 88; RESP 18; TEMP 97.4; O2SAT 98
--- NOTE | 2017-09-17 18:18 | RADRPT ---
EXAM DATE/TIME: 09/17/2017 17:31 [facility] COMPARISON: CHEST SINGLE AP, September 16, 2017, 12:47. INDICATIONS : Status post picc line placement. MEDICAL HISTORY : None. SURGICAL HISTORY : None. ENCOUNTER: Subsequent ACUITY: 1 day PAIN SCORE: 0/10 LOCATION: chest FINDINGS: Single AP view of the chest. Right-sided PICC line in place. Tip is in the distal SVC. The lungs are clear. Cardiomediastinal silhouette within normal limits. No evidence of pleural effusion or pneumoth orax. CONCLUSION: Right-sided PICC line in place with tip at the distal SVC. No acute cardiopulmonar y disease identified. Dennys Weaver MD on September 17, 2017 at 18:15 Board Certified Radiologist. This report was verified electronically.
--- NOTE | 2017-09-17 18:40 | HHI.FF ---
Face to Face Verification Diagnosis: (1) Osteomyelitis of right foot (2) Sepsis (3) Open wound of right foot (4) Diabetic foot ulcer (5) Cellulitis of foot, right (6) MRSA (methicillin resistant Staphylococcus aureus) (7) Diabetes Home Health Nursing Order: Wound care and dressing changes IV medication administration I have seen patient Abbey Alicia on 09/17/17. My clinical findings support the need for the requested home health care services because: Ltd mobility - disease progression Med compliance is questionable Limited ability to care for self I certify that my clinical findings support that this patient is homebound because: Impaired cognitive ability/safety Unsteady gait/balance Candido Gonzales DO Sep 17, 2017 18:40
[2017-09-17 20:00] VITALS: BP 113/58; PULSE 86; RESP 20; TEMP 97.7; O2SAT 98
[2017-09-17] MEDS ORDERED: HYDR-3583 PO (20:40)
--- NOTE | 2017-09-17 20:47 | HHI.DCPOC ---
Discharge Care Plan Diagnosis: (1) Diabetic foot ulcer Goals to Promote Your Health * To prevent worsening of your condition and complications * To maintain your health at the optimal level Directions to Meet Your Goals Take your medications as prescribed Follow your dietary instruction Follow activity as directed Keep your appointments as scheduled Take your immunizations and boosters as scheduled If your symptoms worsen call your PCP, if no PCP go to Urgent Care Center or Emergency Room Smoking is Dangerous to Your Health. Avoid second hand smoke Call the 24-hour hour crisis hotline for domestic abuse at Frank Felipe Jr. EDWIN Sep 17, 2017 20:47
--- NOTE | 2017-09-17 20:57 | HHI.DS ---
Discharge Summary Admission Date Sep 14, 2017 at 23:09 Discharge Date: Sep 17, 2017 Admitting Diagnosis suspected osteomyelitis right foot failed outpatient therapy (1) Osteomyelitis of right foot ICD Code: M86.9 - Osteomyelitis, unspecified Status: Acute Procedures 09/15- TMA of right foot Brief History - From Admission 57-year-old female with a past medical history of diabetes mellitus, hyperlipidemia, GERD and multiple foot infections presents to the ED with concern for osteomyelitis of the right foot. The patient was recently discharged from [facility] for osteomyelitis and had a prolonged hospitalization with debridement of the right foot. She was discharged home with a PICC line and was on clindamycin and daptomycin for osteomyelitis. She was seen by her anodize machine operator earlier today, Dr. Pate, he referred her to the emergency department for further evaluation. WBC 19.7. MRI of the right foot showed osteomyelitis in the second metatarsal with possible osteomyelitis in the third fourth and fifth metatarsals, the cuboid and cuneiform bones and the navicular bone at the base of the second proximal phalanx. ESR 88. The patient denies fevers or chills. CBC/BMP: 09/15/17 0629 09/16/17 1446 Significant Findings Laboratory Tests Test 09/15/17 00:45 09/15/17 06:29 09/16/17 14:46 Red Blood Count 3.53 MIL/MM3 (4.00-5.30) Hemoglobin 8.2 GM/DL (11.6-15.3) Hematocrit 26.1 % (35.0-46.0) Mean Corpuscular Volume 73.8 FL (80.0-100.0) Mean Corpuscular Hemoglobin 23.2 PG (27.0-34.0) Mean Corpuscular Hemoglobin Concent 31.5 % (32.0-36.0) Red Cell Distribution Width 18.7 % (11.6-17.2) Creatinine 0.47 MG/DL (0.50-1.00) Random Glucose 196 MG/DL (74-106) 257 MG/DL (74-106) Calcium Level 8.0 MG/DL (8.5-10.1) 7.8 MG/DL (8.5-10.1) Chloride Level 111 MEQ/L (98-107) 108 MEQ/L (98-107) Blood Urea Nitrogen 5 MG/DL (7-18) Albumin 2.4 GM/DL (3.4-5.0) Aspartate Amino Transf (AST/SGOT) 11 U/L (15-37) Hemoglobin A1c 8.8 % (4.3-6.0) Iron Level 9 MCG/DL (50-170) Percent Iron Saturation 3.5 % (20-50) PE at Discharge awake and alert,oriented x 3 lungs clear regular rhythm Bowel sounds diminished right foot- post dressing in place, moves all extremities spontaneously Hospital Course Pt admitted on 09/15/17 with osteomyelitis of her right foot. Pt was subsequently taken to OR by Dr. Lofton (podiatry) for amputation of all toes of the right foot. Infectious disease was consulted (Dr. Stevenson) and treated with IV antibiotics. Pt is being discharged home with PICC line and to receive daptomycin from home health service. Pt to follow-up with Dr. Lofton in her office on 09/21/17 Pt Condition on Discharge: Stable Discharge Disposition: Discharge Home Discharge Time: > 30 minutes Discharge Instructions DIET: Follow Instructions for: As Tolerated, No Restrictions Activities you can perform: See Additionl Instruction Other Activity Instructions: As direccted by Dr. Marquez and physical therapy. Follow up Referrals: PCP Follow-up - 2 Weeks Podiatry - 1 Week with Berto Lofton DPM Continued Medications: Alprazolam (Xanax) 0.25 Mg Tab 0.25 MG PO Q8H PRN for ANXIETY, TAB 0 Refills Dapagliflozin (Farxiga) 10 Mg Tab 10 MG PO DAILY for Blood Sugar Management, #30 TAB 0 Refills Gabapentin (Gabapentin) 600 Mg Tab 600 MG PO HS, #30 TAB 0 Refills Gemfibrozil (Gemfibrozil) 600 Mg Tab 600 MG PO BIDAC, #60 TAB 0 Refills Take 30 minutes prior to breakfast and dinner. Hydrocodone-Acetaminophen (Hydrocodone-Acetaminophen) 10-325 mg Tab 1 TAB PO Q6H PRN for foot pain, #30 TAB 0 Refills (This prescription has been renewed) Metformin (Metformin) 1,000 Mg Tab 1000 MG PO BIDPC for Blood Sugar Management, #60 TAB 0 Refills With meals Pantoprazole (Protonix) 40 Mg Tab 40 MG PO DAILY for Ulcer Prevention, #30 TAB 0 Refills Pioglitazone (Actos) 30 Mg Tab 30 MG PO DAILY for Blood Sugar Management, #30 TAB 0 Refills Sertraline (Zoloft) 50 Mg Tab 50 MG PO HS, #30 TAB 0 Refills Discontinued Medications: Clindamycin (Clindamycin) 300 Mg Cap 300 MG PO Q12HR for Infection, CAP 0 Refills Frank Felipe Jr. Sep 17, 2017 20:57
--- NOTE | 2017-09-21 14:41 | MP ---
cc: BERTO MCCRAY EMMANUELLE DATE OF SURGERY 09/15/2017 DATE OF 1960 INDICATIONS This patient presented to my clinic with worsening infection into the right foot. She has had palpable bone noted to the plantar aspect of the second metatarsal head area and noticed increased redness and drainage, as well as having a fever. She underwent incision and drainage of an abscess at [facility] approximately 2-3 weeks prior to that visit. I sent her to the emergency room to be admitted. She had previous MRI showing osteomyelitis findings consistent with that to the second metatarsal and also findings consistent with her previously diagnosed Charcot foot deformity noted to the right mid foot and rear foot areas. I discussed with the patient that she would benefit from transmetatarsal amputation but also explained to her that with that deformity comes the likelihood of abduction and varus rotation and I discussed with her that since she does have a tight Achilles tendon, she would benefit also from a percutaneous tendo-Achilles lengthening also of the right ankle. She agreed to move forward with surgery. The risks, benefits, and potential complications were explained to the patient. She had all of her questions answered prior to surgery. PROCEDURE NOTE She was seen in preop holding by myself, nursing staff and Anesthesia where the correct patient side and site were all confirmed to be correct in the right foot and right ankle. She was then taken the surgical suite in the supine position. The on the right foot was prepped and draped in normal sterile fashion. After timeouts were performed as per hospital protocol, the posterior aspect of the ankle was addressed where three stab incisions were made approximately 1 cm apart beginning approximately 3 cm proximal to the Achilles tendon insertion, medial, then lateral and then another medial incision respectively and the foot was able to be dorsiflexed from 0 degrees at the ankle joint to 5 degrees dorsiflexion of the ankle joint with the knee extended. These incisions were irrigated and closed with 2-0 nylon followed by dressing consisting of Xeroform, 4x4 and Tegaderm. Following this, attention was directed to the distal aspect of the right foot where an ulceration was noted to the right plantar second metatarsal head area with purulent drainage and palpable bone within the wound. The second digit was also rigidly contracted in extension at the metatarsophalangeal joint and digit four and five were present with flexion contracture. She has had previous partial first ray and third digit amputations. A fishmouth incision was made dorsally and plantarly to encompass the entire forefoot at the level of the proximal metatarsals. A saw blade was utilized to transect the proximal fifth metatarsal just distal to the base in order to maintain the tendinous attachment there. The metatarsals 2, 3, 4 and 1 were disarticulated at the tarsometatarsal joint and removed as specimen and sent to pathology as right forefoot. Culture was taken of the right foot and bone from the residual fifth metatarsal base was then biopsied to determine further antibiosis. Following this, the area was copiously irrigated followed by tying off of all bleeders and closure with 2-0 nylon followed by dressing consisting of Xeroform, 4x4s, ABD x three, cast padding and a short posterior splint at 90 degrees in order to maintain dorsiflexion. The patient tolerated procedure and anesthesia well without complications and was returned PACU with vital signs stable and vascular status intact to the remainder of the right foot. She tolerated procedure and anesthesia well and will be non-weightbearing to the right lower extremity and follow up in clinic and one week for a dressing change SURGEON Berto Mccray MD EDUCATION TRAINER Staff PREOPERATIVE DIAGNOSIS 1. Osteomyelitis right second metatarsal. 2. Gastrocsoleus clonus right ankle. POSTOPERATIVE DIAGNOSIS 1. Osteomyelitis right second metatarsal. 2. Gastrocsoleus clonus right ankle. PROCEDURE 1. Transmetatarsal amputation right foot. 2. Percutaneous tendo-Achilles lengthening right foot. ESTIMATED BLOOD LOSS 50 mL ANESTHESIA General endotracheal anesthesia SPECIMENS 1. Right forefoot to pathology 2. Culture right foot 3. Bone right residual fifth metatarsal for biopsy COMPLICATIONS None TOURNIQUET TIME Right calf at 250 mmHg, see nursing notes for tourniquet time. DISPOSITION Non-weightbearing right lower extremity and posterior splint and follow up in clinic in one week. Berto DOVE /9:48 AM /2:08 PM
== END 2017-09-17 21:28 | disposition home health service (06) | DRG 476 ==
LOC: HOR 19:25 → NEDA 23:09 → NEDH 09-15 03:14 → N05A 09-15 14:40
PROVIDERS: ADMIT Internal Medicine; ATTEND Internal Medicine
PROC: 0Y6M0ZB Detachment at Right Foot, Partial 2nd Ray, Open Approach (ICD-10-PCS; 2017-09-15)
PROC: 0Y6M0ZC Detachment at Right Foot, Partial 3rd Ray, Open Approach (ICD-10-PCS; 2017-09-15)
PROC: 0Y6M0ZD Detachment at Right Foot, Partial 4th Ray, Open Approach (ICD-10-PCS; 2017-09-15)
PROC: 0Y6M0ZF Detachment at Right Foot, Partial 5th Ray, Open Approach (ICD-10-PCS; 2017-09-15)
PROC: 0L8N0ZZ Division of Right Lower Leg Tendon, Open Approach (ICD-10-PCS; 2017-09-15)
PROC: 0Y6M0Z9 Detachment at Right Foot, Partial 1st Ray, Open Approach (ICD-10-PCS; principal; 2017-09-15 16:32)
PROC: 02HV33Z Insertion of Infusion Device into Superior Vena Cava, Percutaneous Approach (ICD-10-PCS; 2017-09-17)
PROC: B518ZZA Fluoroscopy of Superior Vena Cava, Guidance (ICD-10-PCS; 2017-09-17)
DX: M86.171 Other acute osteomyelitis, right ankle and foot (principal); E11.41 Type 2 diabetes mellitus with diabetic mononeuropathy; E11.69 Type 2 diabetes mellitus with other specified complication; E11.610 Type 2 diabetes mellitus with diabetic neuropathic arthropathy; Z79.84 Long term (current) use of oral hypoglycemic drugs; E78.5 Hyperlipidemia, unspecified; K21.9 Gastro-esophageal reflux disease without esophagitis; R25.8 Other abnormal involuntary movements; M67.01 Short Achilles tendon (acquired), right ankle; D50.9 Iron deficiency anemia, unspecified; E66.9 Obesity, unspecified; Z68.33 Body mass index [BMI] 33.0-33.9, adult
CPT/HCPCS: 36569; 71010; 73630; 73720; 76937; 80048; 80053; 82728; 82948; 83036; 83540; 83550; 83605; 85025; 85652; 86140; 87015; 87040; 87070; 87102; 87116; 87176; 87205; 87206; 88304; 88307; 88311; 96361; 96374; 96375; A9579; J0744; J0878; J1815; J2270; J2405; J2710; J3010; J7030